=== PATIENT | female | born 1980 | race Caucasian/White ===

== ENCOUNTER 2017-09-24 05:14 | Emergency (ER) | payer OTHER ==
[2017-09-24 06:10] VITALS: BP 134/76
--- NOTE | 2017-09-24 06:21 | ED ---
Demetris Yao Natalie, scribed for Chalo Dee MD on 09/24/17 at 0543 . Laceration/Wound HPI - HPI Summary HPI Summary: The patient is a 37 y/o F presenting to the ED c/o laceration on upper right eyebrow from her indoor cat at 05:00 this morning. The laceration is red with active controlled bleeding. There is another scratch on her chest as well. Pt denies vision changes. She had a similar incident of a cat scratch in the same area. She is UTD on tetanus shot. - History of Current Complaint Stated Complaint: ANIMAL SCRATCH Time Seen by Provider: 09/24/17 05:23 Hx Obtained From: Patient Onset/Duration: Sudden Onset, Lasting Minutes, Still Present Aggravating: Nothing Alleviating: Nothing Timing: Constant Onset Severity: Mild Current Severity: Mild Pain Intensity: 0 Pain Scale Used: 0-10 Numeric Associated Signs & Symptoms: Redness - Allergy/Home Medications Allergies/Adverse Reactions: Allergies Allergy/AdvReac Type Severity Reaction Status Date / Time aspirin Allergy GI Upset Verified 09/24/17 05:22 dextromethorphan Allergy Hives Verified 09/24/17 05:22 [From Dimetapp Cold-Congestion] diphenhydramine Allergy Hives Verified 09/24/17 05:22 [From Dimetapp Cold-Congestion] guaifenesin Allergy Hives Verified 09/24/17 05:22 [From Dimetapp Cold-Congestion] ketorolac [From Toradol] Allergy Vomiting Verified 09/24/17 05:22 latex Allergy Rash Verified 09/24/17 05:22 morphine Allergy hypotension Verified 09/24/17 05:22 and bradycardia paroxetine [From Paxil] Allergy Altered Verified 09/24/17 05:22 Mental Status phenylephrine Allergy Hives Verified 09/24/17 05:22 [From Dimetapp Cold-Congestion] pseudoephedrine Allergy Hives Verified 09/24/17 05:22 [From Dimetapp Cold-Congestion] sertraline [From Zoloft] Allergy Altered Verified 09/24/17 05:22 Mental Status tramadol Allergy Vomiting Verified 09/24/17 05:22 cinnamon Allergy Rash Uncoded 09/24/17 05:22 PMH/Surg Hx/FS Hx/Imm Hx Endocrine/Hematology History: Denies: Hx Diabetes Cardiovascular History: Denies: Hx Hypertension Infectious Disease History: No Infectious Disease History: Denies: Traveled Outside the [place] in Last 30 Days - Family History Known Family History: Negative: Hypertension Review of Systems Negative: Fever Eyes: Negative - vision changes Positive: Other - laceration with redness and bleeding in upper right eyelid All Other Systems Reviewed And Are Negative: Yes Physical Exam - Summary Physical Exam Summary: Appearance: Well appearing, no pain distress Skin: warm, dry, reflects adequate perfusion Head/face: normal Eyes: EOMI, NIKOLAS, 18mm transverse laceration in right upper eyelid ENT: normal Neck: supple, non-tender Respiratory: CTA, breath sounds present Cardiovascular: RRR, pulses symmetrical Abdomen: non-tender, soft Bowel Sounds: present Musculoskeletal: normal, strength/ROM intact Neuro: normal, sensory motor intact, A&Ox3 Triage Information Reviewed: Yes Vital Signs On Initial Exam: Initial Vitals Temp Pulse Resp BP Pulse Ox 97.5 F 75 18 111/80 98 09/24/17 05:17 09/24/17 05:17 09/24/17 05:17 09/24/17 05:17 09/24/17 05:17 Vital Signs Reviewed: Yes Procedures - Laceration/Wound Repair 1 Location: face - upper right eyelid Anesthesia: .5%, Lido Irrigated w/ Saline (ccs): 30 Suture Type: Prolene - 6-0 Number of Sutures: 4 Diagnostics - Vital Signs Vital Signs Temp Pulse Resp BP Pulse Ox 09/24/17 05:17 97.5 F 75 18 111/80 98 - Laboratory Lab Statement: Any lab studies that have been ordered have been reviewed, and results considered in the medical decision making process. Laceration Repair Course/Dx - Course Course Of Treatment: Cat scratch injury to the upper eyelid irrigated, sutured closed. Ordered short course of Augmentin. Up-to-date on tetanus. Good cosmetic result with closure. - Clinical Impression Provider Diagnoses: Cat scratch, Eyelid laceration, right Discharge - Sign-Out/Discharge Documenting (check all that apply): Discharge/Admit/Transfer - Discharge Plan Condition: Good Disposition: HOME Prescriptions: Amoxicillin/Clavulanate TAB* [Augmentin TAB 875*] 875 mg PO BID #8 tab Patient Education Materials: Laceration (ED) Referrals: Bertin Castaneda MD [Primary Care Provider] - Additional Instructions: Dressed with antibiotic ointment 2-3 times daily. Return with concern for infection, worse, new symptoms or other concerns. Sutures to be removed in 5-7 days' time. This can be done by your doctor, urgent care or return to the ER. - Billing Disposition and Condition Condition: GOOD Disposition: HOME The documentation as recorded by the Demetris brenner Natalie accurately reflects the service I personally performed and the decisions made by me, Chalo Dee MD.
== END 2017-09-24 06:10 | disposition home or self-care (01) ==
LOC: ED 05:14
DX: S01.111A Laceration without foreign body of right eyelid and periocular area, initial encounter (principal); W55.03XA Scratched by cat, initial encounter; Y92.9 Unspecified place or not applicable; Z88.6 Allergy status to analgesic agent; Z88.5 Allergy status to narcotic agent; Z88.8 Allergy status to other drugs, medicaments and biological substances
CPT/HCPCS: 12011; 99282

== ENCOUNTER 2018-04-09 05:03 | Emergency (ER) | payer OTHER ==
--- OUTSIDE RECORDS SUMMARY | 2018-04-09 05:17 | XMS REPORT | Continuity of Care Document ---
:1980 External Reference #:[id number] Author Name Senait Rawls Care Team Providers Name Role Phone Donavan To MD Primary Care Physician Unavailable Payers Type Date Identification Numbers Payment Provider Subscriber Policy Number: [id number] Mauri Stubbs PayID: [id number] [address] [place] [address] Advance Directives Description No Information Available Problems Date Description Provider Status Onset: 12/05/2017 Allergic contact dermatitis due to Donavan To M.D. Active other agents Onset: 11/21/2017 Temper problem Donavan To M.D. Active Onset: 07/15/2017 Tobacco user Donavan To M.D. Active Family History Date Family Member(s) Problem(s) Comments Father Heart Disease Mother Diabetes Type II Social History Type Date Description Comments Sex Unknown ETOH Use Denies alcohol use Tobacco Use Start: Unknown Light tobacco smoker (10 or fewer cigarettes/day) Recreational Drug Use Denies Drug Use Smoking Status Reviewed: 04/02/18 Light tobacco smoker (10 or fewer cigarettes/day) Allergies, Adverse Reactions, Alerts Date Description Reaction Status Severity Comments 07/15/2017 Ketorolac Tromethamine vomiting Active 07/15/2017 Ultram vomiting Active 07/15/2017 Morphine low blood pressure Active 07/15/2017 Zoloft vomiting Active 07/15/2017 Paxil homicidal thoughts Active 07/15/2017 Dimetapp Children's Cold And blisters in mouth Active Allergy 04/02/2018 Latex Active Medications Medication Date Status Form Strength Qnty SIG Indications Ordering Provider Haloperidol 03/19 Active Concentrate 2mg/ml 15ml 05/08 F91.8 milliliters [place], daily Oxybutynin 00 Active Tablets ER 5mg 1 by mouth Unknown Chloride ER /0000 24HR every day Betamethasone 12/05 Hx Ointment 0.05% 90gm apply thin L23.89 [place] Dipropionate layer twice Pachika - daily over , MRogeDRoge 01/16 lesions Haloperidol 11/21 Hx Tablets 0.5mg 30tab once daily F91.8 s Zuleika Lowe M.D. 03/19 Oseltamivir 10/16 Hx Capsules 75mg 10cap 1 cap twice J11.89 Phosphate s a day Zuleika Lowe M.D. 11/21 No Active 07/15 Hx Unknown Medications /2017 - 10/16 Docusate Hx Tablets 100mg take 1 tab Unknown Sodium /0000 at bedtime - as needed 01/16 constipation Td(Adult),Unsp Active Injection Unknown ecified /0000 Immunizations Description No Information Available Vital Signs Date Vital Result Comment 04/02/2018 1:53pm Height 65.50 inches 5'5.50" Weight 206.38 lb Heart Rate 84 /min BP Systolic 106 mmHg BP Diastolic 70 mmHg Body Temperature 97.1 F O2 % BldC Oximetry 96 % BMI (Body Mass Index) 33.8 kg/m2 03/19/2018 9:41am Height 65.50 inches 5'5.50" Weight 208.00 lb Heart Rate 83 /min BP Systolic 120 mmHg BP Diastolic 70 mmHg O2 % BldC Oximetry 98 % BMI (Body Mass Index) 34.1 kg/m2 01/16/2018 9:53am Height 65.50 inches 5'5.50" Weight 206.00 lb Heart Rate 80 /min BP Systolic Sitting 120 mmHg BP Diastolic Sitting 62 mmHg Body Temperature 97.4 F O2 % BldC Oximetry 95 % BMI (Body Mass Index) 33.8 kg/m2 12/05/2017 8:15am Height 65.50 inches 5'5.50" Weight 198.00 lb Heart Rate 80 /min BP Systolic 122 mmHg BP Diastolic 78 mmHg O2 % BldC Oximetry 98 % BMI (Body Mass Index) 32.4 kg/m2 11/21/2017 8:24am Height 65.50 inches 5'5.50" Weight 196.00 lb Heart Rate 77 /min BP Systolic 110 mmHg BP Diastolic 70 mmHg O2 % BldC Oximetry 98 % BMI (Body Mass Index) 32.1 kg/m2 09/30/2017 10:25am Weight 185.00 lb Heart Rate 72 /min BP Systolic Sitting 120 mmHg BP Diastolic Sitting 78 mmHg O2 % BldC Oximetry 97 % 09/26/2017 10:52am Weight 186.00 lb Heart Rate 78 /min BP Systolic Sitting 116 mmHg BP Diastolic Sitting 68 mmHg O2 % BldC Oximetry 98 % 09/05/2017 3:36pm Height 65 inches 5'5" Weight 182.25 lb Heart Rate 70 /min BP Systolic Sitting 118 mmHg BP Diastolic Sitting 72 mmHg O2 % BldC Oximetry 98 % BMI (Body Mass Index) 30.3 kg/m2 07/15/2017 3:32pm Height 65 inches 5'5" Weight 164.00 lb Heart Rate 90 /min BP Systolic 132 mmHg BP Diastolic 71 mmHg Body Temperature 97.9 F O2 % BldC Oximetry 98 % BMI (Body Mass Index) 27.3 kg/m2 Results Test Date Facility Test Result H/L Range Note Lipid Profile 12/27/2017 [facility] Triglycerides 127 mg/dL 1 (Trig/Chol/HDL) [address] [place] [address] [phone] Cholesterol 214 mg/dL 2 HDL Cholesterol 61.7 mg/dL 3 LDL Cholesterol 127 mg/dL 4 Basic Metabolic Panel 12/27/2017 [facility] Sodium 139 mmol/L N 135-145 [address] [place] [address] [phone] Potassium 4.5 mmol/L N 3.5-5.0 Chloride 105 mmol/L N 101-111 Co2 Carbon Dioxide 28 mmol/L N 22-32 Anion Gap 6 mmol/L N 2-11 Glucose 92 mg/dL N 70-100 Blood Urea Nitrogen 7 mg/dL N 6-24 Creatinine 0.67 mg/dL N 0.51-0.95 BUN/Creatinine Ratio 10.4 N 8-20 Calcium 9.4 mg/dL N 8.6-10.3 Egfr Non- 98.0 >60 Egfr 118.6 >60 5 Comp Metabolic Panel 11/24/2017 [facility] Sodium 139 mmol/L N 135-145 [address] [place] [address] [phone] Potassium 4.0 mmol/L N 3.5-5.0 Chloride 104 mmol/L N 101-111 Co2 Carbon Dioxide 26 mmol/L N 22-32 Anion Gap 9 mmol/L N 2-11 Glucose 90 mg/dL N 70-100 Blood Urea Nitrogen 6 mg/dL N 6-24 Creatinine 0.64 mg/dL N 0.51-0.95 BUN/Creatinine Ratio 9.4 N 8-20 Calcium 9.0 mg/dL N 8.6-10.3 Total Protein 6.3 g/dL Low 6.4-8.9 Albumin 4.1 g/dL N 3.2-5.2 Globulin 2.2 g/dL N 2-4 Albumin/Globulin Ratio 1.9 N 1-3 Total Bilirubin 0.40 mg/dL N 0.2-1.0 Alkaline Phosphatase 56 U/L N 34-104 Alt 26 U/L N 7-52 Ast 21 U/L N 13-39 Egfr Non- 103.3 >60 Egfr 125.0 >60 6 Laboratory test 10/17/2017 [facility] Lyme Disease Negative Negative [address] [place] [address] [phone] 1 Desirable: <150 Borderline High: 150-199 High: 200-499 Very High: >500 2 Desirable: <200 Borderline High: 200-239 High: >239 3 Low: <40 Desirable: 40-60 High: >60 4 Desirable: <100 Near Optimal: 100-129 Borderline High: 130-159 High: 160-189 Very High: >189 5 Because ethnic data is not always readily available, this report includes an eGFR for both -Americans and non- Americans. The National Kidney Disease Education Program (NKDEP) does not endorse the use of the MDRD equation for patients that are not between the ages of 18 and 70, are , have extremes of body size, muscle mass, or nutritional status, or are non- or non-. According to the National Kidney Foundation, irrespective of diagnosis, the stage of the disease is based on the level of kidney function: Stage Description GFR(mL/min/1.73 m(2)) 1 Kidney damage with normal or decreased GFR 90 2 Kidney damage with mild decrease in GFR 60-89 3 Moderate decrease in GFR 30-59 4 Severe decrease in GFR 15-29 5 Kidney failure <15 (or dialysis) 6 Because ethnic data is not always readily available, this report includes an eGFR for both -Americans and non- Americans. The National Kidney Disease Education Program (NKDEP) does not endorse the use of the MDRD equation for patients that are not between the ages of 18 and 70, are , have extremes of body size, muscle mass, or nutritional status, or are non- or non-. According to the National Kidney Foundation, irrespective of diagnosis, the stage of the disease is based on the level of kidney function: Stage Description GFR(mL/min/1.73 m(2)) 1 Kidney damage with normal or decreased GFR 90 2 Kidney damage with mild decrease in GFR 60-89 3 Moderate decrease in GFR 30-59 4 Severe decrease in GFR 15-29 5 Kidney failure <15 (or dialysis) 7 No evidence of antibodies to B. burgdorferi detected. False negative results may occur in recently infected patients (<=2 weeks) due to low or undetectable antibody levels to B. burgdorferi. If recent exposure is suspected, a second sample should be collected and tested in 2-4 weeks. Test Performed by: [facility] [address] [place] [address] Procedures Date Code Description Status 03/31/2018 072104942 Diabetic Foot Exam Completed 11/21/2017 36939 EKG Tracing & Interpretation Completed 11/07/2017 [id number] Mammogram Completed Encounters Type Date Location Provider Dx Diagnosis Office Visit 01/23/2018 [facility] Dermatology Gini Marsh, L30.9 Dermatitis, 9:20a unspecified Office Visit 01/16/2018 [facility] Max Go F91.8 Other conduct 10:00a Medicine - [place] Cheikh To M.D. 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 Office Visit 10/16/2017 2:40p [facility] Internal Donavan J11.89 Influenza due to Kev - Philipp To unidentified [address] influenza virus w oth manifest S80.269A Insect bite (nonvenomous), unspecified knee, init encntr Office Visit 09/30/2017 10:20a [facility] Internal Seth Crum Z48.02 Encounter for Medicine - [place] Mora removal of [place] sutures Office Visit 09/26/2017 11:00a [facility] Internal Mariela S01.111D Laceration w/o Medicine - [place] Arreola fb of right [place] eyelid and periocular area, subs Office Visit 09/05/2017 3:40p [facility] Internal Damion Gonzalez, N64.4 Mastodynia Medicine - [employer] [address] N39.46 Mixed incontinence Office Visit 07/15/2017 3:20p [facility] Internal Donavan To, Z00.01 Encounter for Kev - Philipp general adult [address] medical exam w abnormal findings F17.210 Nicotine dependence, cigarettes, uncomplicated Plan of Treatment Future Appointment(s):05/21/2018 10:00 am - Charles Perez M.D.,FACP at [facility] Internal Medicine - [address]04/23/2018 9:20 am - Giin Marsh MD at [facility] Vvxteggupgd05/29/2018 - Donavan To M.D.M85.80 Other specified disorders of bone density and structure, unsNew Xrays:Dexa Bone Study, Ordered: ollow up:after dexascan is ibzdyuweyZ14.2 Polycystic ovarian syndromeNew Xrays:US Pelvic, Ordered: 04/02/18
--- OUTSIDE RECORDS SUMMARY | 2018-04-09 05:17 | XMS REPORT | Continuity of Care Document ---
:1980 External Reference #:[id number] Author Name Mayra Wilkinson Care Team Providers Name Role Phone Donavan To MD Primary Care Physician Unavailable Payers Type Date Identification Numbers Payment Provider Subscriber Policy Number: [id number] Mauri Stubbs PayID: [id number] [address] [place] [address] Advance Directives Description No Information Available Problems [...] Use Denies Drug Use Smoking Status Reviewed: 03/19/18 Light tobacco smoker (10 or fewer cigarettes/day) Allergies, Adverse Reactions, Alerts Date Description Reaction Status Severity Comments 07/15/2017 Ketorolac Tromethamine vomiting Active 07/15/2017 Ultram vomiting Active 07/15/2017 Morphine low blood pressure Active 07/15/2017 Zoloft vomiting Active 07/15/2017 Paxil homicidal thoughts Active 07/15/2017 Dimetapp Children's Cold And blisters in mouth Active Allergy Medications Medication Date Status Form Strength Qnty SIG Indications Ordering Provider Haloperidol 03/19 Active Concentrate 2mg/ml 15ml 1/4 ml daily F91.8 Donavan Mejía /Yannick To M.D. Oxybutynin 00/ Active Tablets ER 5mg 1 by mouth Unknown Chloride ER /0000 24HR every day Betamethasone 12/05 Hx Ointment 0.05% 90gm apply thin L23.89 [place] Dipropionate layer twice P[place]ik[place] - daily over , MRogeDRoge 01/16 elbow lesions Haloperidol 11/21 Hx Tablets 0.5mg 30tab once daily F91.8 s Zuleika Lowe M.D. 03/19 Oseltamivir 10/16 Hx Capsules 75mg 10cap 1 cap twice J11.89 Phosphate s a day Zuleika Lowe M.D. 11/21 No Active 07/15 Hx Unknown Medications /2017 - 10/16 Docusate Hx Tablets 100mg take 1 tab Unknown Sodium /0000 at bedtime - as needed 01/16 for constipation Td(Adult),Unsp Active Injection Unknown ecified /0000 Immunizations Description No Information Available Vital Signs Date Vital Result Comment 03/19/2018 9:41am Height 65.50 inches 5'5.50" Weight [...] Result H/L Range Note Lipid Profile 12/27/2017 [facility] Triglycerides 127 mg/dL 1 (Trig/Chol/HDL) [place] [address] [phone] Cholesterol 214 mg/dL 2 HDL Cholesterol 61.7 mg/dL 3 LDL Cholesterol 127 mg/dL 4 Basic Metabolic Panel 12/27/2017 [facility] Sodium 139 mmol/L N 135-145 [place] [address] [phone] Potassium 4.5 mmol/L N 3.5-5.0 Chloride 105 mmol/L N 101-111 Co2 Carbon Dioxide 28 mmol/L N 22-32 Anion Gap 6 mmol/L N 2-11 Glucose 92 mg/dL N 70-100 Blood Urea Nitrogen 7 mg/dL N 6-24 Creatinine 0.67 mg/dL N 0.51-0.95 BUN/Creatinine Ratio 10.4 N 8-20 Calcium 9.4 mg/dL N 8.6-10.3 Egfr Non- 98.0 >60 Egfr 118.6 >60 5 Comp Metabolic Panel 11/24/2017 [facility] Sodium 139 mmol/L N 135-145 [place] [address] [phone] Potassium 4.0 mmol/L N 3.5-5.0 Chloride 104 [...] Egfr 125.0 >60 6 Laboratory test 10/17/2017 [facility] Lyme Disease Negative Negative [address] [place] [address] [phone] 1 Desirable: <150 Borderline High: 150-199 High: [...] tested in 2-4 weeks. Test Performed by: [facility] [address] [place] [address] Procedures Date Code Description Status 11/21/2017 15137 EKG Tracing & Interpretation Completed 11/07/2017 [id number] Mammogram Completed Encounters Type Date Location Provider Dx Diagnosis Office Visit 01/23/2018 [facility] Dermatology Gini Marsh, L30.9 Dermatitis, 9:20a unspecified Office Visit 01/16/2018 [facility] Max Go F91.8 Other conduct 10:00a Medicine - [place] Cheikh To M.D. 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 unidentified [address] influenza virus w oth manifest S80.269A Insect bite (nonvenomous), unspecified knee, init encntr Office Visit 09/30/2017 10:20a [facility] Internal Seth Crum Z48.02 Encounter for Medicine - [place] Mora removal of [place] sutures Office Visit 09/26/2017 11:00a [facility] Internal Mariela S01.111D Laceration w/o Medicine - [place] Arreola fb of right [place] eyelid and periocular area, subs Office Visit 09/05/2017 3:40p [facility] Internal Damion Gonzalez, N64.4 Mastodynia Medicine - [employer] ORDER [address] N39.46 Mixed incontinence Office Visit 07/15/2017 3:20p [facility] Internal Donavan To, Z00.01 Encounter for Kev - Philipp general adult [address] medical exam w abnormal findings F17.210 Nicotine dependence, cigarettes, uncomplicated Plan of Treatment Future Appointment(s):05/21/2018 10:00 am - Charles Perez M.D.,FACP at [facility] Internal Medicine - [address]04/23/2018 9:20 am - Gini Marsh MD at [facility] Xsuoeogsqwb81/15/2018 - Donavan To M.D.F91.8 Other conduct disordersNew Medication:Haloperidol Lactate 2 mg/ml - 1/4 ml dailyFollow up:2 months + EKG
--- NOTE | 2018-04-09 05:53 | ED ---
Head Injury - HPI Summary HPI Summary: 38-year-old female presents with head injury today. States she slipped on ice and struck her head at work. She admits to some right sided upper back pain. No midline pain in neck. No loss consciousness. No nausea vomiting. No dizziness. No change in vision. No photophobia. States having difficulties concentrating. States her headache is not relieved with Tylenol. She has history of anxiety. No other injury. She is not on blood thinners. - History Of Current Complaint Chief Complaint: EDHeadInjury Stated Complaint: FALL, HEAD INJURY Time Seen by Provider: 04/09/18 05:36 Pain Intensity: 4 - Allergies/Home Medications Allergies/Adverse Reactions: Allergies Allergy/AdvReac Type Severity Reaction Status Date / Time aspirin Allergy GI Upset Verified 04/09/18 05:08 dextromethorphan Allergy Hives Verified 04/09/18 05:08 [From Dimetapp Cold-Congestion] diphenhydramine Allergy Hives Verified 04/09/18 05:08 [From Dimetapp Cold-Congestion] guaifenesin Allergy Hives Verified 04/09/18 05:08 [From Dimetapp Cold-Congestion] ketorolac [From Toradol] Allergy Vomiting Verified 04/09/18 05:08 latex Allergy Rash Verified 04/09/18 05:08 morphine Allergy hypotension Verified 04/09/18 05:08 and bradycardia paroxetine [From Paxil] Allergy Altered Verified 04/09/18 05:08 Mental Status phenylephrine Allergy Hives Verified 04/09/18 05:08 [From Dimetapp Cold-Congestion] pseudoephedrine Allergy Hives Verified 04/09/18 05:08 [From Dimetapp Cold-Congestion] sertraline [From Zoloft] Allergy Altered Verified 04/09/18 05:08 Mental Status tramadol Allergy Vomiting Verified 04/09/18 05:08 cinnamon Allergy Rash Uncoded 04/09/18 05:08 Home Medications: Home Medications Haloperidol TAB* [Haldol TAB*] 0.5 mg PO DAILY 04/09/18 [History Confirmed 04/09] Oxybutynin Chloride [Ditropan Xl] 10 mg PO DAILY 04/09/18 [History Confirmed 10/20] PMH/Surg Hx/FS Hx/Imm Hx Endocrine/Hematology History: Denies: Hx Diabetes Cardiovascular History: Denies: Hx Hypertension, Hx Pacemaker/ICD Sensory History: Denies: Hx Hearing Aid Psychiatric History: Denies: Hx Panic Disorder - Surgical History Surgery Procedure, Year, and Place: TOTAL HYSTERECTOMY;. L5/S1 MICRO DISCECTOMY / LAMINECTOMY;. TUBAL LIGATION;. EXPLORATORY SURGERY TO ABDOMEN;. ORAL Infectious Disease History: No Infectious Disease History: Denies: Traveled Outside the [place] in Last 30 Days - Family History Known Family History: Negative: Hypertension - Social History Alcohol Use: Occasionally Substance Use Type: Reports: None Smoking Status (MU): Current Every Day Smoker Review of Systems Negative: Fever Negative: Chest Pain Negative: Shortness Of Breath Negative: Vomiting, Nausea Positive: Headache All Other Systems Reviewed And Are Negative: Yes Physical Exam Triage Information Reviewed: Yes Vital Signs On Initial Exam: Initial Vitals Temp Pulse Resp BP Pulse Ox 97.7 F 80 18 134/80 99 04/09/18 05:05 04/09/18 05:05 04/09/18 05:05 04/09/18 05:05 04/09/18 05:05 Vital Signs Reviewed: Yes Appearance: Positive: Well-Appearing Skin: Positive: Warm, Dry Head/Face: Positive: Normal Head/Face Inspection, Other - no step off, racoon eyes, romo sign Eyes: Positive: Normal, EOMI, NIKOLAS, Conjunctiva Clear ENT: Positive: Normal ENT inspection, Pharynx normal, TMs normal Respiratory/Lung Sounds: Positive: Clear to Auscultation, Breath Sounds Present Cardiovascular: Positive: Normal, RRR Abdomen Description: Positive: Nontender, Soft Bowel Sounds: Positive: Present Musculoskeletal: Positive: Normal Neurological: Positive: Sensory/Motor Intact, Alert, Oriented to Person Place, Time, CN Intact II-III, Normal Gait, Finger to Nose Psychiatric: Positive: Normal - [place] Coma Scale Best Eye Response: 4 - Spontaneous Best Motor Response: 6 - Obeys Commands Best Verbal Response: 5 - Oriented Coma Scale Total: 15 Diagnostics - Vital Signs Vital Signs Temp Pulse Resp BP Pulse Ox 04/09/18 05:05 97.7 F 80 18 134/80 99 - Laboratory Lab Statement: Any lab studies that have been ordered have been reviewed, and results considered in the medical decision making process. Head Injury Course/Dx Course Of Treatment: 38-year-old female presents with head injury today. States she slipped on ice and struck her head at work. She admits to some right sided upper back pain. No midline pain in neck. No loss consciousness. No nausea vomiting. No dizziness. No change in vision. No photophobia. States having difficulties concentrating. States her headache is not relieved with Tylenol. She has history of anxiety. No other injury. She is not on blood thinners. On exam normal neuro exam. According [facility] CT rules does not need any head imaging. Gave her concussion precautions. Told to follow-up with primary. Patient understands agrees with plan. - Diagnoses Differential Diagnosis/HQI/PQRI: Concussion Without LOC, Contusion, Intracranial Bleed Provider Diagnoses: Head injury Discharge - Sign-Out/Discharge Documenting (check all that apply): Patient Departure - Discharge Plan Condition: Good Disposition: HOME Patient Education Materials: Head Injury (ED) Forms: *Work Release Referrals: Donavan To MD [Primary Care Provider] - Additional Instructions: Place ice on area as needed Take Tylenol or ibuprofen for headache every 6 hours Modify activities as tolerated Follow up with primary within 5 days Return to ED if develop vomiting, severe headache, or any new or worsening symptoms - Billing Disposition and Condition Condition: GOOD Disposition: Home
[2018-04-09 06:04] VITALS: BP 134/82
== END 2018-04-09 06:04 | disposition home or self-care (01) ==
LOC: ED 05:03
DX: S09.90XA Unspecified injury of head, initial encounter (principal); F17.200 Nicotine dependence, unspecified, uncomplicated; W00.0XXA Fall on same level due to ice and snow, initial encounter; Y92.9 Unspecified place or not applicable
CPT/HCPCS: 99282

== ENCOUNTER 2018-04-10 17:07 | Emergency (ER) | payer OTHER ==
[2018-04-10] MEDS ORDERED: NS 0.9% 1000 ML* 1,000 ML IV ONE (17:48)
--- NOTE | 2018-04-10 18:00 | ED ---
Syncope/Near Syncope - HPI Summary HPI Summary: This patient is a 38 year old F presenting to [facility] with a chief complaint of LOC since 04:00 this morning. She was at work walking outside for a smoke break when she suffered the LOC. Patient reports that she was on the ground flopping like a fish and holding her head. Her coworkers did not let her get up immediately. Patient eventually got back up, took her smoke break, and went back to work. However, she then developed intermittent blurry vision, uncontrollable crying, and a headache. She took 2 Tylenol and continued working , but her symptoms did not improve. Patient then tried to text her boss that she needed to go to the hospital but could not recognize the names in her phone. 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 She was diagnosed with a concussion and sent home, instructed to take 2 days off of work. However, the patient followed up at Urgent Care complaining of worsening left-sided rib pain, upper left shoulder pain, and neck pain. The patient rates the pain 6/10 in severity when she is moving. Patient reports taking Haloperidol for anxiety and depression. Patient also takes Oxybutynin because she had a hysterectomy at 28 years old. She cadence any kidney issues. - History Of Current Complaint Chief Complaint: EDHeadInjury Time Seen by Provider: 04/10/18 17:20 Hx Obtained From: Patient Onset/Duration: Sudden Onset, Lasting Minutes Context: Witnessed Activity At Onset: Other - Walking Associated Signs And Symptoms: Head Trauma (Remote), Headache, Other - Intermittent blurred vision, uncontrollable crying, and confusion. These worsened today: left-sided rib pain, upper left shoulder pain, and neck pain. - Allergies/Home Medications Allergies/Adverse Reactions: Allergies Allergy/AdvReac Type Severity Reaction Status Date / Time aspirin Allergy GI Upset Verified 04/09/18 05:08 dextromethorphan Allergy Hives Verified 04/09/18 05:08 [From Dimetapp Cold-Congestion] diphenhydramine Allergy Hives Verified 04/09/18 05:08 [From Dimetapp Cold-Congestion] guaifenesin Allergy Hives Verified 04/09/18 05:08 [From Dimetapp Cold-Congestion] ketorolac [From Toradol] Allergy Vomiting Verified 04/09/18 05:08 latex Allergy Rash Verified 04/09/18 05:08 morphine Allergy hypotension Verified 04/09/18 05:08 and bradycardia paroxetine [From Paxil] Allergy Altered Verified 04/09/18 05:08 Mental Status phenylephrine Allergy Hives Verified 04/09/18 05:08 [From Dimetapp Cold-Congestion] pseudoephedrine Allergy Hives Verified 04/09/18 05:08 [From Dimetapp Cold-Congestion] sertraline [From Zoloft] Allergy Altered Verified 04/09/18 05:08 Mental Status tramadol Allergy Vomiting Verified 04/09/18 05:08 cinnamon Allergy Rash Uncoded 04/09/18 05:08 PMH/Surg Hx/FS Hx/Imm Hx Endocrine/Hematology History: Denies: Hx Diabetes Cardiovascular History: Denies: Hx Hypertension, Hx Pacemaker/ICD Sensory History: Denies: Hx Hearing Aid Psychiatric History: Denies: Hx Panic Disorder - Surgical History Surgery Procedure, Year, and Place: TOTAL HYSTERECTOMY;. L5/S1 MICRO DISCECTOMY / LAMINECTOMY;. TUBAL LIGATION;. EXPLORATORY SURGERY TO ABDOMEN;. ORAL Infectious Disease History: No Infectious Disease History: Denies: Traveled Outside the [place] in Last 30 Days - Family History Known Family History: Negative: Hypertension - Social History Alcohol Use: Occasionally Substance Use Type: Reports: None Smoking Status (MU): Current Every Day Smoker Review of Systems Positive: Blurred Vision - Intermittent Positive: Other - neck pain Positive: Other - left-sided rib pain and upper left shoulder pain Neurological: Other - Uncontrollable crying and confusion (tried to text her boss that she needed to go to the hospital but could not recognize the names in her phone) Positive: Headache, Syncope All Other Systems Reviewed And Are Negative: Yes Physical Exam - Summary Physical Exam Summary: VITAL SIGNS: Reviewed. GENERAL: Patient is a well-developed and nourished FEMALE who is lying comfortable in the stretcher. Patient is not in any acute respiratory distress. HEAD AND FACE: No signs of trauma. No ecchymosis, hematomas or skull depressions. No sinus tenderness. EYES: PERRLA, EOMI x 2, No injected conjunctiva, no nystagmus. EARS: Hearing grossly intact. Ear canals and tympanic membranes are within normal limits. MOUTH: Oropharynx within normal limits. NECK: Supple, trachea is midline, no adenopathy, no JVD, no carotid bruit, has c -spine tenderness, neck with full ROM. CHEST: Symmetric, left rib cage tenderness. LUNGS: Clear to auscultation bilaterally. No wheezing or crackles. CVS: Regular rate and rhythm, S1 and S2 present, no murmurs or gallops appreciated. ABDOMEN: Soft, non-tender. No signs of distention. No rebound no guarding, and no masses palpated. Bowel sounds are normal. EXTREMITIES: FROM in all major joints, no edema, no cyanosis or clubbing. NEURO: Alert and oriented x 3. No acute neurological deficits. Speech is normal and follows commands. SKIN: Dry and warm GCS: 15 Triage Information Reviewed: Yes Vital Signs On Initial Exam: Initial Vitals Temp Pulse Resp BP Pulse Ox 97.8 F 68 18 163/71 98 04/10/18 17:10 04/10/18 17:10 04/10/18 17:10 04/10/18 17:10 04/10/18 17:10 Vital Signs Reviewed: Yes Diagnostics - Vital Signs Vital Signs Temp Pulse Resp BP Pulse Ox 04/10/18 17:10 97.8 F 68 18 163/71 98 - Laboratory Result Diagrams: 04/10/18 18:46 04/10/18 18:46 Lab Statement: Any lab studies that have been ordered have been reviewed, and results considered in the medical decision making process. - CT Chest CT CT Interpretation Completed By: Radiologist Summary of CT Findings: 20:24. 1. Nondisplaced right fourth rib fracture without complicating pneumothorax or. hemothorax. 2. No other acute post traumatic findings. ED Physician has reviewed this imaging report. Cervical Spine CT CT Interpretation Completed By: Radiologist Summary of CT Findings: 20:07. No acute fracture, subluxation, or aggressive osseous lesion. ED Physician has reviewed this imaging report. Brain CT CT Interpretation Completed By: Radiologist Summary of CT Findings: 20:05. No acute intracranial abnormality. ED Physician has reviewed this imaging report. - EKG 17:55 Cardiac Rate: Bradycardia - 57 BPM EKG Rhythm: Sinus Rhythm ST Segment: Normal Course/Dx Assessment/Plan: This patient is a 38 year old F presenting to [facility] with a chief complaint of LOC since 04:00 this morning. She was at work walking outside for a smoke break when she suffered the LOC. Patient reports that she was on the ground flopping like a fish and holding her head. Her coworkers did not let her get up immediately. Patient eventually got back up, took her smoke break, and went back to work. However, she then developed intermittent blurry vision, uncontrollable crying, and a headache. She took 2 Tylenol and continued working, but her symptoms did not improve. Patient then tried to text her boss that she needed to go to the hospital but could not recognize the names in her phone. 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 She was diagnosed with a concussion and sent home, instructed to take 2 days off of work. However, the patient followed up at Urgent Care complaining of worsening left-sided rib pain, upper left shoulder pain, and neck pain. The patient rates the pain 6/10 in severity when she is moving. Patient reports taking Haloperidol for anxiety and depression. Patient also takes Oxybutynin because she had a hysterectomy at 28 years old. She denies any kidney issues. C-spine CT impression: No acute fracture, subluxation or aggressive osseous lesion. Head CT impresion: no acute intracranial abnormality. Chest CT impression: Nondisplaced right fourth rib fracture without complicating pneumothorax or hemothorax. No acute posttraumatic findings. In the ED course the patient was given Farina recommended for the pain. At this point the patient will be discharged home with follow-up with PCP. The patient will be given 2 days off from work to return to work on Friday. She will be given a position for Vicodin for pain. - Diagnoses Provider Diagnoses: Rib fracture, Accidental fall Discharge - Sign-Out/Discharge Documenting (check all that apply): Patient Departure - D/C - Discharge Plan Condition: Stable Disposition: HOME Prescriptions: HYDROcodone/ACETAMIN 5-325 MG* [Farina 5-325 TAB*] 1 tab PO Q4H PRN 4 Days #10 tab MDD 4 PRN Reason: Pain Patient Education Materials: Rib Fracture (ED), Acute Neck Pain (ED) Forms: *Work Release Referrals: Donavan To MD [Primary Care Provider] - Additional Instructions: F/U with PCP in 3 days Take medications as indicated - Billing Disposition and Condition Condition: STABLE Disposition: Home - Attestation Statements Document Initiated by Scribe: Yes Documenting Scribe: Juwan Figueroa Provider For Whom Scribe is Documenting (Include Credential): Seth Perez MD Scribe Attestation: IJuwan, scribed for Seth Perez MD on 04/10/18 at 2105. Scribe Documentation Reviewed: Yes Provider Attestation: The documentation as recorded by the Juwan brenner accurately reflects the service I personally performed and the decisions made by me, Seth Perez MD Status of Scribe Document: Viewed
[2018-04-10 18:55] LABS: Hematocrit 43 % (35-47); Hemoglobin 14.3 g/dl (12.0-16.0); Mean Corpuscular HGB Conc 34 g/dl (31-36); Mean Corpuscular Hemoglobin 29 pg (27-31); Mean Corpuscular Volume 87 fL (80-97); Mean Platelet Volume 8.9 fL (7.4-10.4); Platelet Count 305 10^3/ul (150-450); Red Blood Count 4.92 10^6/ul (4.00-5.40); Red Cell Distribution Width 13 % (10.5-15); White Blood Count 11.7 10^3/ul (3.5-10.8)
[2018-04-10 19:12] LABS: EGFR Non-African American 94.2 (>60)
[2018-04-10] MEDS ORDERED: Iohexol 300* (CONTRAST) 10 ML SDV IV ONE (19:19)
[2018-04-10 19:31] LABS: ABS Basophils 0.2 10^3/ul (0-0.2); ABS Eosinophils 0.4 10^3/ul (0-0.6); ABS Lymphocytes 5.3 10^3/ul (1.0-4.8); ABS Monocytes 0.8 10^3/ul (0-0.8); ABS Nucleated RBC 0 10^3/ul; Eosinophil % 3.7 %; Lymphocyte % 45.4 %; Nucleated Red Blood Cells % 0
[2018-04-10 20:33] LABS: Urine Appearance Cloudy; Urine Blood Negative (Negative); Urine Color Yellow; Urine Ketones Negative (Negative); Urine Protein Negative (Negative); Urine Red Blood Cell Absent (Absent); Urine Specific Gravity 1.034 (1.010-1.030); Urine Urobilinogen Negative (Negative); Urine White Blood Cell 3+(>20/hpf) (Absent)
[2018-04-10] MEDS ORDERED: HYDROcodone/ACETAMIN 5-325 MG* 1 TAB PO ONE (20:35)
[2018-04-10 21:27] VITALS: BP 114/54
== END 2018-04-10 21:28 | disposition home or self-care (01) ==
LOC: ED 17:07
DX: S22.39XA Fracture of one rib, unspecified side, initial encounter for closed fracture (principal); R55 Syncope and collapse; R51 Headache; R41.0 Disorientation, unspecified; Z88.0 Allergy status to penicillin; H53.8 Other visual disturbances; M54.2 Cervicalgia; F17.210 Nicotine dependence, cigarettes, uncomplicated; W19.XXXA Unspecified fall, initial encounter; Y92.9 Unspecified place or not applicable
CPT/HCPCS: 36415; 70450; 71260; 72125; 80053; 81003; 81015; 83605; 85025; 85060; 87086; 93005; 96360; 96361; 99283; Q9967

== ENCOUNTER → 2018-11-20 16:48 | Emergency (ER) | payer OTHER ==
--- OUTSIDE RECORDS SUMMARY | 2018-11-20 17:02 | XMS REPORT | Continuity of Care Document ---
:1980 External Reference #:[id number] Author Name Michelle Juarez Care Team Providers Name Role Phone Abigail Caldwell M.D. Primary Care Physician Unavailable Payers Date Identification Numbers Payment Provider Subscriber Policy Number: [id number] Mauri Stubbs PayID: [id number] [address] [place] [address] Onset: 2018 Policy Number: [id number] [employer] Jonn Stubbs Group Number: [id number] [address] Group Name: [id number] [place] [address] PayID: [id number] Problems Active Problems Provider Date Allergic contact dermatitis due to other Donavan To M.D. Onset: 2017 agents Temper problem Donavan To M.D. Onset: 11/21/2017 Tobacco user Donavan To M.D. Onset: 07/15/2017 Family History Date Family Member(s) Observation Comments General Diabetes General Chronic Obstructive Pulmonary Disease (COPD) General Spinal Stenosis General Osteoporosis General Cancer Father Heart Disease Mother Diabetes Type II Siblings 2 Social History Type Date Description Comments Sex Unknown Marital Status Single Lives With Daughters has a 15 y/o son who lives with father in [place] Occupation Currently Working nursing aide ETOH Use Denies alcohol use Tobacco Use Start: Unknown Light tobacco smoker (10 or fewer cigarettes/day) Recreational Drug Use Denies Drug Use Now admits to THC occasional Smoking Status Reviewed: 11/20/18 Light tobacco smoker (10 or fewer cigarettes/day) Exercise Type/Frequency Plans on starting to exercise again Allergies, Adverse Reactions, Alerts Active Allergies Reaction Severity Comments Date Ketorolac Tromethamine vomiting 07/15/2017 Ultram vomiting 07/15/2017 Morphine low blood pressure 07/15/2017 Zoloft vomiting 07/15/2017 Paxil homicidal thoughts 07/15/2017 Dimetapp [facility] Cold And Allergy blisters in mouth 07/15/2017 Latex 04/02/2018 Medications Active Medications SIG Qnty Indications Ordering Provider Date Hydroxyzine HCL 1-2 tabs by mouth 60tabs G47.00 Abigail Caldwell MD 11/06/2018 25mg at bedtime as Tablets needed insomnia Divalproex Sodium one twice a day 60tabs F39 Abigail Caldwell MD 09/24/2018 125mg Tablets Vitamin D3 Ultra 1 cap every week 4tabs Abigail Caldwell MD 04/09/2018 Potency [id number] Tablets Oxybutynin Chloride Take One Tablet 30tabs Abigail Caldwell MD ER By Mouth Once 5mg Tablets ER 24HR Daily History Medications Gabapentin take 1-3 tablets by 90caps G47.00 Abigail Caldwell, 09/24/2018 - 300mg mouth at bedtime as 11/06/2018 Capsules needed for insomnia Trazodone HCL 1 by mouth at 60tabs R45.4 Abigail Caldwell, 08/13/2018 - 50mg bedtime for one 11/06/2018 Tablets week, then 2 po at bedtime Trintellix one by mouth daily 30tabs F33.9 Abigail Caldwell, 06/18/2018 - 10mg Tablets 08/31/2018 Haloperidol Lactate 1/4 milliliters F33.9 Abigail Caldwell, 06/18/2018 - daily 08/13/2018 2mg/ml Concentrate Trintellix 1 by mouth every 28tabs Abigail Caldwell, 05/25/2018 - 5mg Tablets day 06/18/2018 Haloperidol take one tablet 30tabs F33.9 [facility], 04/30/2018 - 0.5mg daily 06/18/2018 Tablets Haloperidol Lactate 1/4 milliliters 15ml F91.8 Abigail Caldwell, 03/19/2018 - daily 06/18/2018 2mg/ml Concentrate Betamethasone apply thin layer 90gm L23.89 Donavan 12/05/2017 - Dipropionate twice daily over [place], 01/16/2018 0.05% elbow lesions MRogeDRoge Ointment Haloperidol once daily 30tabs F91.8 Donavan 11/21/2017 - 0.5mg [place], 03/19/2018 Tablets M.D. Oseltamivir Phosphate 1 cap twice a day 10caps J11.89 Tillar 10/16/2017 - [place], 11/21/2017 75mg Capsules M.D. No Active Medications Unknown 07/15/2017 - 10/16/2017 Docusate Sodium take 1 tab at Unknown - 100mg bedtime as needed 01/16/2018 Tablets for constipation Td(Adult),Unspecified Unknown Injection Vital Signs Date Vital Result Comment 11/20/2018 3:51pm Height 65.50 inches 5'5.50" Weight 224.50 lb Heart Rate 86 /min BP Systolic Sitting 131 mmHg Lue reg cuff BP Diastolic Sitting 84 mmHg Lue reg cuff O2 % BldC Oximetry 98 % BMI (Body Mass Index) 36.8 kg/m2 11/06/2018 8:15am Height 65.50 inches 5'5.50" Weight 226.00 lb Heart Rate 76 /min BP Systolic 112 mmHg BP Diastolic 70 mmHg Body Temperature 97.6 F O2 % BldC Oximetry 95 % BMI (Body Mass Index) 37.0 kg/m2 09/24/2018 8:06am Height 65.50 inches 5'5.50" Weight 217.00 lb Heart Rate 102 /min BP Systolic 120 mmHg BP Diastolic 74 mmHg Body Temperature 97.3 F O2 % BldC Oximetry 96 % BMI (Body Mass Index) 35.6 kg/m2 09/01/2018 8:13am Height 65.50 inches 5'5.50" Weight 217.38 lb Heart Rate 70 /min BP Systolic Sitting 118 mmHg Lue large cuff BP Diastolic Sitting 56 mmHg Lue large cuff Respiratory Rate 24 /min O2 % BldC Oximetry 97 % BMI (Body Mass Index) 35.6 kg/m2 Neck Circumference in inches 15.5 08/13/2018 9:30am Height 65.50 inches 5'5.50" Weight 213.00 lb Heart Rate 68 /min BP Systolic Sitting 122 mmHg BP Diastolic Sitting 68 mmHg BMI (Body Mass Index) 34.9 kg/m2 06/18/2018 10:10am Height 65.50 inches 5'5.50" Weight 209.25 lb Heart Rate 71 /min BP Systolic Sitting 104 mmHg left arm large cuff BP Diastolic Sitting 82 mmHg left arm large cuff Respiratory Rate 20 /min O2 % BldC Oximetry 96 % at rest on room air BMI (Body Mass Index) 34.3 kg/m2 05/25/2018 10:06am Height 65.50 inches 5'5.50" Weight 211.50 lb Heart Rate 71 /min BP Systolic Sitting 129 mmHg reg adult cuff left arm BP Diastolic Sitting 80 mmHg reg adult cuff left arm Respiratory Rate 20 /min O2 % BldC Oximetry 98 % at rest on room air BMI (Body Mass Index) 34.7 kg/m2 04/30/2018 8:49am Height 65.50 inches 5'5.50" Weight 207.00 lb Heart Rate 74 /min BP Systolic Sitting 121 mmHg BP Diastolic Sitting 74 mmHg O2 % BldC Oximetry 98 % BMI (Body Mass Index) 33.9 kg/m2 04/02/2018 1:53pm Height 65.50 inches 5'5.50" Weight [...] Date Facility Test Result H/L Range Note Laboratory test 04/10/2018 [facility] Pathologist (SEE NOTE) [address] [place] [address] [phone] Urine Culture And 04/10/2018 [facility] Urine Culture SEE RESULT [address] [place] [address] [phone] Urinalysis Profile 04/10/2018 [facility] Urine Color Yellow [address] [place] [address] [phone] Urine Appearance Cloudy Urine Specific [place] 1.034 High 1.010-1.030 Urine pH 6.0 N 5-9 Urine Urobilinogen Negative Negative Urine Ketones Negative Negative Urine Protein Negative Negative Urine Leukocytes 3+ Abnormal Negative Urine Blood Negative Negative Urine Nitrite Negative Negative Urine Bilirubin Negative Negative Urine Glucose Negative Negative Urine White Blood Cell 3+(>20/hpf) Abnormal Absent Urine Red Blood Cell Absent Absent Urine Bacteria Absent Absent Urine Squamous Epithelial Cell Present Abnormal Absent CBC Auto 04/10/2018 [facility] White Blood 11.7 10^3/uL High 3.5-10.[address] [place] [address] [phone] Red Blood Count 4.92 10^6/uL N 4.00-5.40 Hemoglobin 14.3 g/dL N 12.0-16.0 Hematocrit 43 % N 35-47 Mean Corpuscular Volume 87 fL N 80-97 Mean Corpuscular Hemoglobin 29 pg N 27-31 Mean Corpuscular HGB Conc 34 g/dL N 31-36 Red Cell Distribution Width 13 % N 10.5-15 Platelet Count 305 10^3/uL N 150-450 Mean Platelet Volume 8.9 fL N 7.4-10.4 Abs Neutrophils 5.0 10^3/uL N 1.5-7.7 Abs Lymphocytes 5.3 10^3/uL High 1.0-4.8 Abs Monocytes 0.8 10^3/uL N 0-0.8 Abs Eosinophils 0.4 10^3/uL N 0-0.6 Abs Basophils 0.2 10^3/uL N 0-0.2 Abs Nucleated RBC 0 10^3/uL Granulocyte % 43.0 % Lymphocyte % 45.4 % Monocyte % 6.6 % Eosinophil % 3.7 % Basophil % 1.3 % Nucleated Red Blood Cells % 0 Comp Metabolic Panel 04/10/2018 [facility] Sodium 137 mmol/L N 135-145 [address] [place] [address] [phone] Potassium 4.0 mmol/L N 3.5-5.0 Chloride 108 mmol/L N 101-111 Co2 Carbon Dioxide 25 mmol/L N 22-32 Anion Gap 4 mmol/L N 2-11 Glucose 96 mg/dL N 70-100 Blood Urea Nitrogen 9 mg/dL N 6-24 Creatinine 0.69 mg/dL N 0.51-0.95 BUN/Creatinine Ratio 13.0 N 8-20 Calcium 8.5 mg/dL Low 8.6-10.3 Total Protein 6.1 g/dL Low 6.4-8.9 Albumin 3.8 g/dL N 3.2-5.2 Globulin 2.3 g/dL N 2-4 Albumin/Globulin Ratio 1.7 N 1-3 Total Bilirubin 0.30 mg/dL N 0.2-1.0 Alkaline Phosphatase 53 U/L N 34-104 Alt 16 U/L N 7-52 Ast 13 U/L N 13-39 Egfr Non- 94.2 >60 Egfr 114.0 >60 3 Laboratory test 04/10/2018 [facility] Lactic Acid 0.8 mmol/L N 0.5-2.0 4 finding [address] [place] [address] [phone] Laboratory test 04/04/2018 [facility] TSH (Thyroid 0.58 mcIU/mL N 0.34-5.60 finding Stim Horm) [place] [address] [phone] Vitamin D Total 25(Oh) 14.9 ng/mL Low 20-50 FSH And LH 04/04/2018 [facility] FSH (Follicle Stim 11.0 mIU/mL [address] Hormone) [place] [address] [phone] LH (Lutenizing Hormone) 18.5 mIU/mL 6 Testosterone Free 04/04/2018 [facility] Free 0.72 0.06-0.98 7 & Total Testosterone ng/[place] [address] ng/dl [phone] Testosterone 30 ng/dL 8-60 8 Lipid Profile 12/27/2017 [facility] Triglycerides 127 mg/dL 9 (Trig/Chol/HDL) [place] [address] [phone] Cholesterol 214 mg/dL 10 HDL Cholesterol 61.7 mg/dL 11 LDL Cholesterol 127 mg/dL 12 Basic Metabolic Panel 12/27/2017 [facility] Sodium 139 mmol/L N 135-145 [place] [address] [phone] Potassium 4.5 mmol/L N 3.5-5.0 Chloride 105 mmol/L N 101-111 Co2 Carbon Dioxide 28 mmol/L N 22-32 Anion Gap 6 mmol/L N 2-11 Glucose 92 mg/dL N 70-100 Blood Urea Nitrogen 7 mg/dL N 6-24 Creatinine 0.67 mg/dL N 0.51-0.95 BUN/Creatinine Ratio 10.4 N 8-20 Calcium 9.4 mg/dL N 8.6-10.3 Egfr Non- 98.0 >60 Egfr 118.6 >60 13 Comp Metabolic Panel 11/24/2017 [facility] Sodium 139 mmol/L N 135-[address] [place] [address] [phone] Potassium 4.0 mmol/L N 3.5-5.0 Chloride 104 [...] Egfr Non- 103.3 >60 Egfr 125.0 >60 14 Laboratory test 10/17/2017 [facility] Lyme Disease Negative Negative [address] [place] [address] [phone] 1 Leukocytosis with mild absolute lymphocytosis. Appropriate clinical follow-up should be considered. Reviewed by Dr. Grider 2 SEE RESULT BELOW Name: JONN STUBBS : [address]: Seth Perez MD Acct: [id number] Unit: [id number] AGE: 38 Location: ED Re04/10/18 SEX: F Status: DEP ER SPEC: [id number] YAHAIRA: 04/10/18 [facility] DR: Seth Perez MD REQ: [id number] RECD: 04/10/18 STATUS: STAS JORDAN DR: Donavan To MD _ [facility]: Urine Culture Procedure Result Reported Site Urine Culture Final 04/11/18- 1603 ML No growth of clinically significant organisms * ML - Main Lab . END OF REPORT DEPARTMENT OF PATHOLOGY, [address] [place] [address] Carson Grider M.D. Director [facility] # [id number] 3 Because ethnic data is not always readily [...] 15-29 5 Kidney failure <15 (or dialysis) 4 [facility] Severe Sepsis and Septic Shock Management Bundle Measure requires all lactic acids initially measuring >2.0 mmol/L be repeated. 5 Normally menstruating females - Follicular phase 3 - 9 - Mid-cycle peak 4 - 23 - Luteal phase 1 - 6 Postmenopausal females 16 - 114 6 Normally menstruating females - Follicular Phase 1 - 18 - Mid-Cycle Peak 24 - 105 - Luteal Phase 0.6 - 20 Postmenopausal females 15 - 62 7 ADDITIONAL INFORMATION Testing performed by [facility]. This test was developed and its performance characteristics determined by [facility] in a manner consistent with CLIA requirements. This test has not been cleared or approved by the U.S. Food and Drug Administration. 8 ADDITIONAL INFORMATION Testing performed by Liquid Chromatography-Tandem Mass Spectrometry (LC-MS/MS). This test was developed and its performance characteristics determined by [facility] in a manner consistent with CLIA requirements. This test has not been cleared or approved by the U.S. Food and Drug Administration. Test Performed by: [facility] [address] [place] [address] 9 Desirable: <150 Borderline High: 150-199 High: 200-499 Very High: >500 10 Desirable: <200 Borderline High: 200-239 High: >239 11 Low: <40 Desirable: 40-60 High: >60 12 Desirable: <100 Near Optimal: 100-129 Borderline High: 130-159 High: 160-189 Very High: >189 13 Because ethnic data is not always readily [...] 15-29 5 Kidney failure <15 (or dialysis) 14 Because ethnic data is not always readily [...] 15-29 5 Kidney failure <15 (or dialysis) 15 No evidence of antibodies to B. burgdorferi detected. False negative results may occur in recently infected patients (<=2 weeks) due to low or undetectable antibody levels to B. burgdorferi. If recent exposure is suspected, a second sample should be collected and tested in 2-4 weeks. Test Performed by: [facility] [address] [place] [address] Procedures Date Code Description Status 09/12/2018 12340 Sleep Study Unattended,HRT Rate,Oxygen Sat,Resp Completed Effort/Airflow 04/27/2018 [id number] Bone Mineral Density Test Completed 03/31/2018 [id number] Diabetic Foot Exam Completed 11/21/2017 46977 EKG Tracing & Interpretation Completed 11/07/2017 [id number] Mammogram Completed Encounters Type Date Location Provider Dx Diagnosis Office Visit 11/06/2018 [facility] Abigail Caldwell MD F33.9 Major depressive 8:00a Medicine - Ccmob disorder, recurrent, unspecified F39 Unspecified mood [affective] disorder G47.00 Insomnia, unspecified Office Visit 09/24/2018 8:00a [facility] Abigail Caldwell F33.9 Major depressive Medicine - Ccmob MD disorder, recurrent, unspecified R45.87 Impulsiveness F39 Unspecified mood [affective] disorder 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, sequela G47.00 Insomnia, unspecified F43.10 Post-traumatic stress disorder, unspecified Office Visit 09/01/2018 8:30a [facility] Margarita Maxime, R06.83 [facility] R53.83 Other fatigue Office Visit 08/25/2018 9:20a [facility] Gini Marsh MD L85.3 Xerosis cutis L56.4 Polymorphous light eruption L40.8 Other psoriasis 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 Office Visit 08/13/2018 9:40a [facility] Abigail Caldwell F33.9 Major depressive Medicine - Ccmob MD disorder, recurrent, unspecified R45.4 Irritability and anger Office Visit 06/18/2018 10:00a [facility] Abigail Caldwell F33.9 Major depressive Medicine - Suite MD disorder, R recurrent, unspecified N32.81 Overactive bladder N39.41 Urge incontinence R45.4 Irritability and anger G47.9 Sleep disorder, unspecified Office Visit 06/08/2018 [facility] Occupational Tam S13.4xxD Sprain of 2:39p Health MD Cristian ligaments of cervical spine, subsequent encounter S22.31xD Fracture of one rib, right side, subs for fx w routn heal Z04.2 Encounter for exam and observation following work accident Office Visit 05/25/2018 10:00a [facility] Abigail Caldwell F33.9 Major depressive Medicine - Suite MD disorder, R recurrent, unspecified R45.4 Irritability and anger E55.9 Vitamin D deficiency, unspecified M84.376D Stress fracture, unsp foot, subs for fx w routn heal Office Visit 05/22/2018 [facility] Occupational Tam S13.4xxD Sprain of 2:37p Dakota Foster MD ligaments of cervical spine, subsequent encounter S22.31xD Fracture of one rib, right side, subs for fx w routn heal S46.811D Strain of musc/fasc/tend at shldr/up arm, right arm, subs S46.812D Strain of musc/fasc/tend at shldr/up arm, left arm, subs Z04.2 Encounter for exam and observation following work accident Office Visit 05/12/2018 4:10p [facility] Gini Marsh, 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 L85.3 Xerosis cutis Office Visit 05/07/2018 [facility] Occupational Tam S13.4xxD Sprain of 2:34p Dakota Foster MD ligaments of cervical spine, subsequent encounter S22.31xD Fracture of one rib, right side, subs for fx w routn heal S46.812D Strain of musc/fasc/tend at shldr/up arm, left arm, subs S09.90xD Unspecified injury of head, subsequent encounter Z04.2 Encounter for exam and observation following work accident Office Visit 04/30/2018 9:00a [facility] Rena Elpidio, M79.672 Pain in Medicine-Maria Tshelby left foot F17.210 Nicotine dependence, cigarettes, uncomplicated E55.9 Vitamin D deficiency, unspecified F33.9 Major depressive disorder, recurrent, unspecified Office Visit 04/02/2018 2:20p [facility] Donavan M85.80 Oth disrd of bone Medicine - Philipp To density and Suite R structure, unspecified site E28.2 Polycystic ovarian syndrome Office Visit 03/19/2018 [facility] Donavan F91.8 Other conduct 9:40a Medicine - Suite Philipp To disorders R Office Visit 01/23/2018 [facility] Gini Marsh, L30.9 Dermatitis, 9:20a unspecified Office Visit 01/16/2018 [facility] Donavan F91.8 Other conduct 10:00a Medicine - Suite Philipp To disorders R L98.9 Disorder of the skin and subcutaneous tissue, unspecified M79.672 Pain in left foot Office Visit 12/05/2017 8:00a [facility] Donavan Ratliffshreya, F91.8 Other conduct Medicine - M.DRoge disorders Suite R L23.89 Allergic contact dermatitis due to other agents Z13.220 Encounter for screening for lipoid disorders Z13.1 Encounter for screening for diabetes mellitus Office Visit 11/21/2017 8:20a [facility] Donavan Ratliffshreya, F91.8 Other conduct Medicine - M.DRoge disorders Suite R 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 unidentified Suite R influenza virus w oth manifest S80.269A Insect bite (nonvenomous), unspecified knee, init encntr Office 09/30/2017 [facility] Seth Crum Z48.02 Encounter for Visit 10:20a Fabrice Mora M.D. removal of sutures Office 09/26/2017 [facility] Medicine - Mariela S01.111D Laceration w/ o Visit 11:00a Darrius Arreola M.D. fb of right eyelid and periocular area, subs Office 09/05/2017 [facility] Medicine - Cristinaofirosanna N64.4 Mastodynia Visit 3:40p Suite R HAKAN Gonzalez N39.46 Mixed incontinence Office Visit 07/15/2017 3:20p [facility] Donavanhan To, Z00.01 Encounter for Kev Lowe M.D. general adult Suite R medical exam w abnormal findings F17.210 Nicotine dependence, cigarettes, uncomplicated Plan of Treatment Future Appointment(s):12/25/2018 8:20 am - [facility]bigail Caldwell [facility] at [facility] 11:15 am - Angelika Green DNP, RN, WEED CONTROLLER-BC at [facility]01/12/2019 9:30 am - Gini aMrsh MD at [facility] Bvtgjzzgeel28/19/2019 - Abigail Caldwell MDK62.5 Hemorrhage of anus and rectumComments:I am referring you to the emergency department for some urgent imaging, because you have rectal bleeding with pain in the abdomen, which may represent colitis, which is an inflammation of the colon.
--- OUTSIDE RECORDS SUMMARY | 2018-11-20 17:02 | XMS REPORT | Continuity of Care Document ---
:1980 External Reference #:[id number] Author Name Mayra Wilkinson Care Team Providers Name Role Phone Abigail Caldwell M.D. Primary Care Physician Unavailable Payers Date Identification Numbers Payment Provider Subscriber Policy Number: [id number] Mauri Stubbs PayID: [id number] [address] [place] [address] Onset: 2018 Policy Number: [id number] [employer] Jonn Stubbs Group Number: [id number] [address] Group Name: [id number] [place] [address] PayID: [id number] Problems Active Problems Provider Date Allergic contact [...] y/o son who lives with father in [place] Occupation Currently Working nursing associate ETOH Use Denies alcohol use Tobacco Use Start: Unknown Light tobacco smoker (10 or fewer cigarettes/day) Recreational Drug Use Denies Drug Use Now admits to THC occasional Smoking Status Reviewed: 11/06/18 Light tobacco smoker (10 or fewer cigarettes/day) [...] week 4tabs Abigail Caldwell MD 04/09/2018 Potency [id number] Tablets Oxybutynin Chloride Take One Tablet 30tabs [...] 06/18/2018 Haloperidol take one tablet 30tabs F33.9 [facility], 04/30/2018 - 0.5mg daily 06/18/2018 Tablets Haloperidol Lactate 1/4 milliliters 15ml F91.8 Abigail Caldwell, 03/19/2018 - daily 06/18/2018 2mg/ml Concentrate Betamethasone apply thin layer 90gm L23.89 [place] 12/05/2017 - Dipropionate twice daily over [place], 01/16/2018 0.05% elbow lesions MRogeDRoge Ointment Haloperidol once daily 30tabs F91.8 [place] 11/21/2017 - 0.5mg [place], 03/19/2018 Tablets M.D. Oseltamivir Phosphate 1 cap twice a day 10caprené J11.89 [place] 10/16/2017 - [place]ara, 11/21/2017 75mg Capsules M.D. No Active Medications Unknown 07/15/2017 - 10/16/2017 Docusate Sodium take 1 tab at Unknown - 100mg bedtime as needed 01/16/2018 Tablets for constipation Td(Adult),Unspecified Unknown Injection Vital Signs Date Vital Result Comment 11/06/2018 8:15am Height 65.50 inches 5'5.50" Weight [...] Result H/L Range Note Laboratory test 04/10/2018 [facility] Pathologist (SEE NOTE) [address] [place] [address] [phone] Urine Culture And 04/10/2018 [facility] Urine Culture SEE RESULT [address] [place] [address] [phone] Urinalysis Profile 04/10/2018 [facility] Urine Color Yellow [address] [place] [address] [phone] Urine Appearance Cloudy Urine Specific Rodman 1.034 High 1.010-1.030 Urine pH 6.0 N [...] Cell Present Abnormal Absent CBC Auto 04/10/2018 [facility] White Blood 11.7 10^3/uL High 3.5-10.[address] [place] [address] [phone] Red Blood Count 4.92 10^6/uL N 4.00-5.40 [...] Cells % 0 Comp Metabolic Panel 04/10/2018 [facility] Sodium 137 mmol/L N 135-[address] [place] [address] [phone] Potassium 4.0 mmol/L N 3.5-5.0 Chloride 108 [...] Egfr 114.0 >60 3 Laboratory test 04/10/2018 [facility] Lactic Acid 0.8 mmol/L N 0.5-2.[address] [place] [address] [phone] Laboratory test 04/04/2018 [facility] TSH (Thyroid 0.58 mcIU/mL N 0.34-5.[address] Stim Horm) [place] [address] [phone] Vitamin D Total 25(Oh) 14.9 ng/mL Low 20-50 FSH And LH 04/04/2018 [facility] FSH (Follicle Stim 11.0 mIU/mL [address] Hormone) [place] [address] [phone] LH (Lutenizing Hormone) 18.5 mIU/mL 6 Testosterone Free 04/04/2018 [facility] Free 0.72 0.06-0.98 7 & Total 101 Testosterone ng/[place] [address] ng/dl [phone] Testosterone 30 ng/dL 8-60 8 Lipid Profile 12/27/2017 [facility] Triglycerides 127 mg/dL 9 (Trig/Chol/HDL) [address] [place] [address] [phone] Cholesterol 214 mg/dL 10 HDL Cholesterol 61.7 mg/dL 11 LDL Cholesterol 127 mg/dL 12 Basic Metabolic Panel 12/27/2017 [facility] Sodium 139 mmol/L N 135-[address] [place] [address] [phone] Potassium 4.5 mmol/L N 3.5-5.0 Chloride 105 mmol/L N 101-111 Co2 Carbon Dioxide 28 mmol/L N 22-32 Anion Gap 6 mmol/L N 2-11 Glucose 92 mg/dL N 70-100 Blood Urea Nitrogen 7 mg/dL N 6-24 Creatinine 0.67 mg/dL N 0.51-0.95 BUN/Creatinine Ratio 10.4 N 8-20 Calcium 9.4 mg/dL N 8.6-10.3 Egfr Non- 98.0 >60 Egfr 118.6 >60 13 Comp Metabolic Panel 11/24/2017 [facility] Sodium 139 mmol/L N 135-[address] [place] [address] [phone] Potassium 4.0 mmol/L N 3.5-5.0 Chloride 104 [...] Egfr 125.0 >60 14 Laboratory test 10/17/2017 [facility] Lyme Disease Negative Negative [address] [place] [address] [phone] 1 Leukocytosis with mild absolute lymphocytosis. Appropriate clinical follow-up should be considered. Reviewed by Dr. Grider 2 SEE RESULT BELOW Name: JONN STUBBS : [address]: Seth Perez MD Acct: [id number] Unit: [id number] AGE: 38 Location: ED Re04/10/18 SEX: F Status: DEP ER SPEC: [id number] YAHAIRA: 04/10/18-[address]: Seth Perez MD REQ: [id number] RECD: 04/10/18 STATUS: COMP [facility] DR: [place] To MD _ SOURCE: URINE SPDESC: ORDERED: Urine Culture Procedure Result Reported Site Urine Culture Final 04/11/18- 1603 ML No growth of clinically significant organisms * ML - Main Lab . END OF REPORT DEPARTMENT OF PATHOLOGY, [address] [place] [address] Carson Grider M.D. Director [facility] # [id number] 3 Because ethnic data is not always [...] 5 Kidney failure <15 (or dialysis) 4 [facility] Severe Sepsis and Septic Shock Management Bundle [...] developed and its performance characteristics determined by [facility] in a manner consistent with CLIA requirements. This test has not been cleared or approved by the U.S. Food and Drug Administration. 8 ADDITIONAL INFORMATION Testing performed by Liquid Chromatography-Tandem Mass Spectrometry (LC-MS/MS). This test was developed and its performance characteristics determined by [facility] in a manner consistent with CLIA requirements. This test has not been cleared or approved by the U.S. Food and Drug Administration. Test Performed by: [facility] [address] [place] [address] 9 Desirable: <150 Borderline High: 150-199 High: [...] tested in 2-4 weeks. Test Performed by: [facility] [address] [place] [address] Procedures Date Code Description Status 09/12/2018 44321 Sleep Study Unattended,HRT Rate,Oxygen Sat,Resp Completed Effort/Airflow 04/27/2018 [id number] Bone Mineral Density Test Completed 03/31/2018 [id number] Diabetic Foot Exam Completed 11/21/2017 66982 EKG Tracing & Interpretation Completed 11/07/2017 [id number] Mammogram Completed Encounters Type Date Location Provider Dx Diagnosis Office Visit 09/24/2018 [facility] Abigail Caldwell MD F33.9 Major depressive 8:00a Medicine - Ccmob disorder, recurrent, unspecified R45.87 Impulsiveness F39 Unspecified mood [affective] disorder 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, sequela G47.00 Insomnia, unspecified F43.10 Post-traumatic stress disorder, unspecified Office Visit 09/01/2018 8:30a Pulmonology [facility] Sleep Margarita Swartz, R06.83 [facility] R53.83 Other fatigue Office Visit 08/25/2018 9:20a [facility] Dermatology Gini Marsh MD L85.3 Xerosis cutis L56.4 Polymorphous light eruption L40.8 Other psoriasis 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 Office Visit 08/13/2018 9:40a [facility] Internal Abigail Paulette, F33.9 Major depressive Medicine - Ccmob MD disorder, recurrent, unspecified R45.4 Irritability and anger Office Visit 06/18/2018 10:00a [facility] Internal Abigailrosanna Caldwell, F33.9 Major depressive Medicine - Suite MD disorder, R recurrent, unspecified N32.81 Overactive bladder N39.41 Urge incontinence R45.4 Irritability and anger G47.9 Sleep disorder, unspecified Office Visit 06/08/2018 [facility] Occupational Tam S13.4xxD Sprain of 2:39p Dakota Foster MD ligaments of cervical spine, subsequent encounter S22.31xD Fracture of one rib, right side, subs for fx w routn heal Z04.2 Encounter for exam and observation following work accident Office Visit 05/25/2018 10:00a [facility] Internal Abigail Caldwell, F33.9 Major depressive Medicine - Suite MD disorder, R recurrent, unspecified R45.4 Irritability and anger E55.9 Vitamin D deficiency, unspecified M84.376D Stress fracture, unsp foot, subs for fx w routn heal Office Visit 05/22/2018 [facility] Occupational Tam S13.4xxD Sprain of 2:37p Dakota Foster MD ligaments of cervical spine, subsequent encounter S22.31xD Fracture of one rib, right side, subs for fx w routn heal S46.811D Strain of musc/fasc/tend at shldr/up arm, right arm, subs S46.812D Strain of musc/fasc/tend at shldr/up arm, left arm, subs Z04.2 Encounter for exam and observation following work accident Office Visit 05/12/2018 4:10p [facility] Dermatology Gini Marsh, 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 L85.3 Xerosis cutis Office Visit 05/07/2018 [facility] Occupational Tam S13.4xxD Sprain of 2:34p Dakota Foster MD ligaments of cervical spine, subsequent encounter S22.31xD Fracture of one rib, right side, subs for fx w routn heal S46.812D Strain of musc/fasc/tend at shldr/up arm, left arm, subs S09.90xD Unspecified injury of head, subsequent encounter Z04.2 Encounter for exam and observation following work accident Office Visit 04/30/2018 9:00a DoNotUse [facility] Internal Rena Haqaz, M79.672 Pain in Medicine-[place] left foot F17.210 Nicotine dependence, cigarettes, uncomplicated E55.9 Vitamin D deficiency, unspecified F33.9 Major depressive disorder, recurrent, unspecified Office Visit 04/02/2018 2:20p [facility] Internal [place] M85.80 Oth disrd of bone Medicine Chrissy To M.D. density and Suite R structure, unspecified site E28.2 Polycystic ovarian syndrome Office Visit 03/19/2018 [facility] Internal [place] F91.8 Other conduct 9:40a Medicine - Suite [place] To disorders R Office Visit 01/23/2018 [facility] Dermatology Gini Marsh, L30.9 Dermatitis, 9:20a unspecified Office Visit 01/16/2018 [facility] Internal [place] F91.8 Other conduct 10:00a Medicine - Jesus To M.D. disorders R L98.9 Disorder of the skin and subcutaneous tissue, unspecified M79.672 Pain in left foot Office Visit 12/05/2017 8:00a [facility] Internal [place] To, F91.8 Other conduct Medicine - Philipp disorders Suite R L23.89 Allergic contact dermatitis due to other agents Z13.220 Encounter for screening for lipoid disorders Z13.1 Encounter for screening for diabetes mellitus Office Visit 11/21/2017 8:20a [facility] Internal [place] To, F91.8 Other conduct Medicine - [place] disorders Suite R I45.89 Other specified conduction disorders Office Visit 10/16/2017 2:40p [facility] Internal [place] J11.89 Influenza due to Kev - Philipp To unidentified Suite R influenza virus w oth manifest S80.269A Insect bite (nonvenomous), unspecified knee, init encntr Office 09/30/2017 [facility]NotUse [facility] Internal Seth BlakeRoge Z48.02 Encounter for Visit 10:20a Medicine-Florin Mora M.D. removal of sutures Office 09/26/2017 [facility] Internal Medicine - Mariela S01.111D Laceration w/ o Visit 11:00a Darrius Arreola M.D. fb of right eyelid and periocular area, subs Office 09/05/2017 [facility] Internal Medicine - Damion N64.4 Mastodynia Visit 3:40p Suite R HAKAN Gonzalez N39.46 Mixed incontinence Office Visit 07/15/2017 3:20p [facility] Internal Donavanhan To, Z00.01 Encounter for Kev - [place] general adult Suite R medical exam w abnormal findings F17.210 Nicotine dependence, cigarettes, uncomplicated Plan of Treatment Future Appointment(s):12/25/2018 8:20 am - Abigail Caldwell MD at [facility] Internal Medicine - [facility]12/07/2018 11:15 am - Angelika Green DNP, RN, CHIEF RADIOLOGY-BC at [facility]01/12/2019 9:30 am - Gini Marsh MD at [facility] Cwagorpluuy73/05/2019 - Abigail Caldwell MDF33.9 Major depressive disorder, recurrent, unspecifiedFollow up:re schedule PE later in Unspecified mood [affective] kyrbutzeR78.00 Insomnia, unspecifiedNew Medication:Hydroxyzine HCL 25 mg - 1-2 tabs by mouth at bedtime as needed insomnia
[2018-11-20 18:29] LABS: ABS Basophils 0.1 10^3/ul (0-0.2); ABS Eosinophils 0.4 10^3/ul (0-0.6); ABS Lymphocytes 4.9 10^3/ul (1.0-4.8); ABS Monocytes 0.8 10^3/ul (0-0.8); ABS Neutrophils 5.1 10^3/ul (1.5-7.7); Eosinophil % 3.6 %; Hematocrit 44 % (35-47); Hemoglobin 14.5 g/dL (12.0-16.0); Lymphocyte % 43.4 %; Mean Corpuscular HGB Conc 33 g/dL (31-36); Mean Corpuscular Hemoglobin 29 pg (27-31); Mean Corpuscular Volume 86 fL (80-97); Mean Platelet Volume 8.7 fL (7.4-10.4); Platelet Count 337 10^3/uL (150-450); Red Blood Count 5.04 10^6 /uL (3.70-4.87); Red Cell Distribution Width 14 % (10-15); White Blood Count 11.2 10^3/uL (3.5-10.8)
[2018-11-20 18:38] VITALS: BP 135/89
[2018-11-20 18:47] LABS: Albumin 4.2 g/dL (3.2-5.2); Albumin/Globulin Ratio 1.6 (1-3); BUN/Creatinine Ratio 6.5 (8-20); Calcium 9.4 mg/dL (8.6-10.3); EGFR African American 100.5 (>60); Globulin 2.7 g/dL (2-4); Potassium 3.8 mmol/L (3.5-5.0); Total Bilirubin 0.4 mg/dL (0.2-1.0); Total Protein 6.9 g/dL (6.4-8.9)
[2018-11-20 18:53] LABS: HCG Pregnancy 1.55 mIU/mL
[2018-11-20 19:22] LABS: Urine Appearance Clear; Urine Bacteria Absent (Absent); Urine Bilirubin Negative (Negative); Urine Blood Negative (Negative); Urine Color Yellow; Urine Glucose Negative (Negative); Urine Ketones Negative (Negative); Urine Nitrite Negative (Negative); Urine Protein Negative (Negative); Urine Red Blood Cell Trace(0-2/hpf) (Absent); Urine Specific Gravity 1.008 (1.010-1.030); Urine Squamous Epithelial Cell Present (Absent); Urine Urobilinogen Negative (Negative); Urine White Blood Cell Trace(0-5/hpf) (Absent)
== END | disposition left against medical advice (07) ==
LOC: ED 16:48
DX: Z53.21 Procedure and treatment not carried out due to patient leaving prior to being seen by health care provider (principal)
CPT/HCPCS: 36415; 80053; 81003; 81015; 84702; 85025; 87077; 87086; 87186; 99282

== ENCOUNTER 2019-03-23 13:50 | Emergency (ER) | payer BC, OTHER ==
[2019-03-23 14:41] VITALS: BP 130/75
--- NOTE | 2019-03-23 15:07 | UC ---
Respiratory Complaint HPI - HPI Summary HPI Summary: 3 DAYS OF CONSTANT DIFFUSE CHEST PAIN. PATIENT IS UNABLE TO FURTHER DESCRIBE IT. THE PAIN IS RADIATING INTO BOTH HER SHOULDERS AND THE BACK OF HER NECK. SHE HAS ASSOCIATED SHORTNESS OF BREATH AND SWEATS. FEELS WORSE WITH EXERTION. DENIES ANY COUGH OR CONGESTION. NO EAR PAIN OR FEVER. HAD A SORE THROAT INITIALLY BUT THAT HAS SINCE COMPLETELY RESOLVED. - History of Current Complaint Chief Complaint: UCRespiratory Stated Complaint: SINUS AND CHEST CONGESTION Time Seen by Provider: 03/23/19 14:53 Hx Obtained From: Patient Onset/Duration: Gradual Onset, Lasting Days, Still Present Timing: Constant Severity Initially: Moderate Severity Currently: Moderate Pain Intensity: 2 Pain Scale Used: 0-10 Numeric Aggravating Factors: Exertion Alleviating Factors: Nothing Associated Signs And Symptoms: Positive: Dyspnea. Negative: Pleuritic Chest Pain, Wheezing - Allergies/Home Medications Allergies/Adverse Reactions: Allergies Allergy/AdvReac Type Severity Reaction Status Date / Time aspirin Allergy GI Upset Verified 03/23/19 14:35 dextromethorphan Allergy Hives Verified 03/23/19 14:35 [From Dimetapp Cold-Congestion] diphenhydramine Allergy Hives Verified 03/23/19 14:35 [From Dimetapp Cold-Congestion] guaifenesin Allergy Hives Verified 03/23/19 14:35 [From Dimetapp Cold-Congestion] ketorolac [From Toradol] Allergy Vomiting Verified 03/23/19 14:35 latex Allergy Rash Verified 03/23/19 14:35 morphine Allergy hypotension Verified 03/23/19 14:35 and bradycardia paroxetine [From Paxil] Allergy Altered Verified 03/23/19 14:35 Mental Status phenylephrine Allergy Hives Verified 03/23/19 14:35 [From Dimetapp Cold-Congestion] pseudoephedrine Allergy Hives Verified 03/23/19 14:35 [From Dimetapp Cold-Congestion] sertraline [From Zoloft] Allergy Altered Verified 03/23/19 14:35 Mental Status tramadol Allergy Vomiting Verified 03/23/19 14:35 trazodone AdvReac Headache Verified 03/23/19 14:35 cinnamon Allergy Rash Uncoded 03/23/19 14:35 Home Medications: Home Medications D-Methorphan/PE/Acetaminophen [Cold Multi-Symptom Gelcap] 1 tab PO Q12HR PRN [History Confirmed 03/23/19] PMH/Surg Hx/FS Hx/Imm Hx - Additional Past Medical History Additional PMH: H/O TBI Psychological History: Depression - Surgical History Surgical History: Yes Surgery Procedure, Year, and Place: L5-S1 surgery age 21. hysterectomy - Family History Known Family History: Negative: Hypertension - Social History Alcohol Use: None Substance Use Type: None Smoking Status (MU): Current Every Day Smoker Amount Used/How Often: < 1ppd Review of Systems All Other Systems Reviewed And Are Negative: Yes Constitutional: Positive: Fatigue ENT: Positive: Sore Throat Respiratory: Positive: Negative Cardiovascular: Positive: Chest Pain Gastrointestinal: Negative: Abdominal Pain, Vomiting, Nausea Genitourinary: Positive: Negative Musculoskeletal: Positive: Myalgia Psychological: Positive: Depressed Physical Exam Triage Information Reviewed: Yes Appearance: Well-Appearing, No Pain Distress, Well-Nourished Vital Signs: Initial Vital Signs Temp 98.9 F 03/23/19 14:36 Pulse 68 03/23/19 14:36 Resp 18 03/23/19 14:36 BP 130/75 03/23/19 14:36 Pulse Ox 98 03/23/19 14:36 Vital Signs Reviewed: Yes Eyes: Positive: Conjunctiva Clear ENT: Positive: Hearing grossly normal, Pharynx normal, TMs normal Neck: Positive: Supple, Nontender, No Lymphadenopathy Respiratory Exam: Normal Cardiovascular Exam: Normal Abdomen Description: Positive: Soft Musculoskeletal: Positive: No Edema Neurological: Positive: Alert Psychological: Positive: Age Appropriate Behavior Skin: Negative: Rashes Diagnostics - Radiology CXR Radiology Interpretation Completed By: Radiologist Summary of Radiographic Findings: NO EVIDENCE FOR ACTIVE CARDIOPULMONARY DISEASE. Respiratory Course/Dx - Course Course Of Treatment: I DISCUSSED WITH THE PATIENT OUR INABILITY TO ADEQUATELY EVALUATE FOR ANY UNDERLYING CARDIAC CAUSE OF HER SYMPTOMS. GIVEN SHE IS COMPLAINING OF DIFFUSE CHEST PAIN, SHOULDER PAIN, SHORTNESS OF BREATH AND SWEATS THAT IS WORSE WITH EXERTION I STRONGLY RECOMMENDED SHE GO DIRECTLY TO THE EMERGENCY ROOM FOR FURTHER EVALUATION. PATIENT DECLINES STATING WORK OBLIGATIONS AND FINANCIAL PROBLEMS. ADDITIONALLY SHE IS NOT CONCERNED THAT THERE IS ANY CARDIAC ISSUE HERE TODAY. CBC, CMP, TSH DRAWN. PREDNISONE TO HELP WITH ANY AIRWAY INFLAMMATION. ADVISED THAT SHE COULD BE RISKING WORSENING OF HER CONDITION THAT COULD POSE A THREAT TO HER LIFE, HEALTH AND MEDICAL SAFETY. SHE VERBALIZES UNDERSTANDING AND CONTINUES TO DECLINE TRANSFER. THE PATIENT IS CLINICALLY SOBER, FREE FROM DISTRACTING INJURY, APPEARS TO HAVE INTACT INSIGHT, JUDGMENT, AND REASON, AND IN MY OPINION HAS THE CAPACITY TO MAKE DECISIONS. - Differential Dx/Diagnosis Provider Diagnosis: Chest pain Discharge ED - Sign-Out/Discharge Documenting (check all that apply): Patient Departure All imaging exams completed and their final reports reviewed: Yes - Discharge Plan Condition: Stable Disposition: HOME Prescriptions: predniSONE TAB* [Deltasone TAB*] 50 mg PO DAILY #4 tab Patient Education Materials: Chest Pain (ED) Referrals: Abigail Caldwell MD [Primary Care Provider] - 2 Days Additional Instructions: DISCUSSED I HAVE NO WAY TO ADEQUATELY EVALUATE YOU FOR ANY UNDERLYING CARDIAC CONDITION. GIVEN YOUR SYMPTOMS I FEEL ER EVALUATION IS YOUR SAFEST OPTION. YOU HAVE DECLINED TRANSFER TO THE ER TODAY WITH THE UNDERSTANDING THAT YOUR CONDITION MAY WORSEN LEADING TO RESPIRATORY DISTRESS/FAILURE, CARDIAC ARREST, /DISABILITY. EKG UNREMARKABLE. CXR UNREMARKABLE. BLOOD COUNT, METABOLIC PANEL AND THYROID TESTS DRAWN TODAY. PREDNISONE TO HELP WITH YOUR COUGH AND AIRWAY INFLAMMATION. GO TO THE ER WITHOUT FAIL IF YOUR SYMPTOMS WORSEN. - Billing Disposition and Condition Condition: STABLE Disposition: Home
[2019-03-23] MEDS ORDERED: predniSONE TAB* 20 MG PO ONE (15:40)
== END 2019-03-23 17:00 | disposition home or self-care (01) ==
LOC: UCEAST 13:50
DX: R07.9 Chest pain, unspecified (principal); J02.9 Acute pharyngitis, unspecified; M79.10 Myalgia, unspecified site; R53.83 Other fatigue; Z88.5 Allergy status to narcotic agent; Z88.6 Allergy status to analgesic agent; Z88.8 Allergy status to other drugs, medicaments and biological substances; Z91.040 Latex allergy status; Z91.018 Allergy to other foods; F17.210 Nicotine dependence, cigarettes, uncomplicated
CPT/HCPCS: 71046; 93005; 99212; G0463; J7512

== ENCOUNTER 2019-05-05 19:08 | Emergency (ER) | payer OTHER ==
--- OUTSIDE RECORDS SUMMARY | 2019-05-05 19:12 | XMS REPORT | Continuity of Care Document ---
:1980 External Reference #:[id number] Author Name Marlon Acosta M.D. (transmitted by agent of provider Dea Penny) Address [address] [facility] [address] [place] [address] Care Team Providers Name Role Phone Joe Torrez MD - Dermatology Care Team Information Medical Office Clerk [phone] Mirian Walker DPM - Energy Projects Lead Care Team Information Medical Office Clerk Abigail Caldwell M.D. - Family Medicine Care Team Information Medical Office Clerk Problems Active Problems Provider Date Tobacco user Donavan To M.D. Onset: 07/15/2017 Temper problem Donavan To M.D. Onset: 11/21/2017 Allergic contact dermatitis due to other Don[place] To M.D. Onset: 2017 agents Social History Type Date Description Comments Sex Unknown ETOH Use Denies alcohol use Tobacco Use Start: Unknown Light tobacco smoker (10 or fewer cigarettes/day) Recreational Drug Use Denies Drug Use Now admits to THC occasional Smoking Status Reviewed: 12/25/18 Light tobacco smoker (10 or fewer cigarettes/day) [...] Medications SIG Qnty Indications Ordering Provider Date Cipro 1 tab twice a 14tabs Abigail Caldwell MD 12/31/2018 500mg Tablets day for 7 days Vitamin D-1000 take one Abigail Caldwell MD 12/25/2018 Maximum Strength capsule/tablet daily by mouth 1000Unit Tablets Oxybutynin Chloride Take One Tablet 30tabs Abigail Caldwell MD ER By Mouth Once 5mg Tablets ER 24HR Daily History Medications Hydroxyzine HCL 1-2 tabs by mouth 60tabs G47.00 Abigail Caldwell MD 2018 - 25mg at bedtime as 12/11/2018 Tablets needed insomnia Divalproex Sodium one twice a day 60tabs F39 Abigail Caldwell MD 09/24/2018 - 12/11/[address] Gabapentin take 1-3 tablets 90caps G47.00 Abigail Caldwell MD 09/24/2018 - 300mg by mouth at 11/06/2018 Capsules bedtime as needed for insomnia Td(Adult),Unspecifie Unknown d Injection Immunizations Description No Information Available Vital Signs Date Vital Result Comment 12/25/2018 8:22am Height 65.50 inches 5'5.50" Weight 215.25 lb w/shoes Heart Rate 81 /min BP Systolic Sitting 118 mmHg Lue reg cuff BP Diastolic Sitting 78 mmHg Lue reg cuff O2 % BldC Oximetry 96 % BMI (Body Mass Index) 35.3 kg/m2 11/20/2018 3:51pm Height 65.50 inches 5'5.50" Weight 224.50 lb Heart Rate 86 /min BP Systolic Sitting 131 mmHg Lue reg cuff BP Diastolic Sitting 84 mmHg Lue reg cuff O2 % BldC Oximetry 98 % BMI (Body Mass Index) 36.8 kg/m2 Results Test Acquired Date Facility Test Result H/L Range Note Laboratory test 12/28/2018 [facility] TSH 2.28 Normal 0.34- 5.[address] (Thyroid mcIU/[place] [address] Stim Horm) [phone] CBC No Diff 12/28/2018 [facility] White 14.1 High 3.5-10.[address] Blood 10^3/[place] [address] Count [phone] Red Blood Count 5.20 10^6/uL High 3.70-4.87 Hemoglobin 15.0 g/dL Normal 12.0-16.0 Hematocrit 45 % Normal 35-47 Mean Corpuscular Volume 87 fL Normal 80-97 Mean Corpuscular Hemoglobin 29 pg Normal 27-31 Mean Corpuscular HGB Conc 33 g/dL Normal 31-36 Red Cell Distribution Width 13 % Normal 10-15 Platelet Count 321 10^3/uL Normal 150-450 Mean Platelet Volume 9.3 fL Normal 7.4-10.4 Urinalysis Profile 12/28/2018 [facility] Urine Color Straw [address] [place] [address] [phone] Urine Appearance Clear Urine Specific [place] 1.002 Low 1.010-1.030 Urine pH 6.0 Normal 5-9 Urine Urobilinogen Negative Negative Urine Ketones Negative Negative Urine Protein Negative Negative Urine Leukocytes Trace Abnormal Negative Urine Blood Negative Negative Urine Nitrite Negative Negative Urine Bilirubin Negative Negative Urine Glucose Negative Negative Urine White Blood Cell Trace(0-5/hpf) Absent Urine Red Blood Cell Trace(0-2/hpf) Absent Urine Bacteria 1+ Abnormal Absent Urine Squamous Epithelial Cell Present Abnormal Absent Urine Culture And 12/28/2018 [facility] Urine SEE RESULT [address] [place] [address] [phone] Laboratory test 12/22/2018 [facility] Vitamin D 75.9 ng/mL High 20-50 [address] Total 25(Oh) [place] [address] [phone] Comp Metabolic 12/22/2018 [facility] Sodium 138 mmol/L Normal 135-[address] [place] [address] [phone] Potassium 4.4 mmol/L Normal 3.5-5.0 Chloride 104 mmol/L Normal 101-111 Co2 Carbon Dioxide 28 mmol/L Normal 22-32 Anion Gap 6 mmol/L Normal 2-11 Glucose 93 mg/dL Normal 70-100 Blood Urea Nitrogen 6 mg/dL Normal 6-24 Creatinine 0.74 mg/dL Normal 0.51-0.95 BUN/Creatinine Ratio 8.1 Normal 8-20 Calcium 9.2 mg/dL Normal 8.6-10.3 Total Protein 6.2 g/dL Low 6.4-8.9 Albumin 4.2 g/dL Normal 3.2-5.2 Globulin 2.0 g/dL Normal 2-4 Albumin/Globulin Ratio 2.1 Normal 1-3 Total Bilirubin 0.50 mg/dL Normal 0.2-1.0 Alkaline Phosphatase 74 U/L Normal 34-104 Alt 26 U/L Normal 7-52 Ast 17 U/L Normal 13-39 Egfr Non- 86.9 >60 Egfr 105.2 >60 3 Laboratory test 12/22/2018 [facility] Hepatitis Bs Negative Negative [address] [place] [address] [phone] Syphillis Igg W/Reflex RPR Negative Negative GC/Chlamydia 12/22/2018 [facility] Chlamydia Negative Negative Amplified Rna [address] [place] [address] [phone] Neisseria gonorrhoeae (GC) Rna Negative Negative Hepatitis C Antibody 12/22/2018 [facility] HCV Index 0.01 s/c [address] [place] [address] [phone] Hepatitis C Antibody Negative Negative Laboratory 12/22/2018 [facility] Hepatitis B Negative Negative test finding [address] [place] [address] [phone] HIV 1&2 p24 12/22/2018 [facility] HIV 4th Negative Negative Screen [address] [place] [address] [phone] CBC Auto Diff 11/20/2018 [facility] White Blood 11.2 10^3/uL High 3.5-10.[address] [place] [address] [phone] Red Blood Count 5.04 10^6/uL High 3.70-4.87 Hemoglobin 14.5 g/dL Normal 12.0-16.0 Hematocrit 44 % Normal 35-47 Mean Corpuscular Volume 86 fL Normal 80-97 Mean Corpuscular Hemoglobin 29 pg Normal 27-31 Mean Corpuscular HGB Conc 33 g/dL Normal 31-36 Red Cell Distribution Width 14 % Normal 10-15 Platelet Count 337 10^3/uL Normal 150-450 Mean Platelet Volume 8.7 fL Normal 7.4-10.4 Abs Neutrophils 5.1 10^3/uL Normal 1.5-7.7 Abs Lymphocytes 4.9 10^3/uL High 1.0-4.8 Abs Monocytes 0.8 10^3/uL Normal 0-0.8 Abs Eosinophils 0.4 10^3/uL Normal 0-0.6 Abs Basophils 0.1 10^3/uL Normal 0-0.2 Abs Nucleated RBC 0.0 10^3/uL Granulocyte % 45.5 % Lymphocyte % 43.4 % Monocyte % 6.8 % Eosinophil % 3.6 % Basophil % 0.7 % Nucleated Red Blood Cells % 0.0 Comp Metabolic 11/20/2018 [facility] Sodium 138 mmol/L Normal 135-145 Panel [address] [place] [address] [phone] Potassium 3.8 mmol/L Normal 3.5-5.0 Chloride 105 mmol/L Normal 101-111 Co2 Carbon Dioxide 26 mmol/L Normal 22-32 Anion Gap 7 mmol/L Normal 2-11 Glucose 94 mg/dL Normal 70-100 Blood Urea Nitrogen 5 mg/dL Low 6-24 Creatinine 0.77 mg/dL Normal 0.51-0.95 BUN/Creatinine Ratio 6.5 Low 8-20 Calcium 9.4 mg/dL Normal 8.6-10.3 Total Protein 6.9 g/dL Normal 6.4-8.9 Albumin 4.2 g/dL Normal 3.2-5.2 Globulin 2.7 g/dL Normal 2-4 Albumin/Globulin Ratio 1.6 Normal 1-3 Total Bilirubin 0.40 mg/dL Normal 0.2-1.0 Alkaline Phosphatase 63 U/L Normal 34-104 Alt 15 U/L Normal 7-52 Ast 15 U/L Normal 13-39 Egfr Non- 83.0 >60 Egfr 100.5 >60 5 Laboratory test 11/20/2018 [facility] HCG 1.55 mIU/mL 6 finding [address] [place] [address] [phone] Urinalysis Profile 11/20/2018 [facility] Urine Color Yellow [address] [place] [address] [phone] Urine Appearance Clear Urine Specific [place] 1.008 Low 1.010-1.030 Urine pH 6.0 Normal 5-9 Urine Urobilinogen Negative Negative Urine Ketones Negative Negative Urine Protein Negative Negative Urine Leukocytes Trace Abnormal Negative Urine Blood Negative Negative Urine Nitrite Negative Negative Urine Bilirubin Negative Negative Urine Glucose Negative Negative Urine White Blood Cell Trace(0-5/hpf) Absent Urine Red Blood Cell Trace(0-2/hpf) Absent Urine Bacteria Absent Absent Urine Squamous Epithelial Cell Present Abnormal Absent Urine Culture And 11/20/2018 [facility] Urine Culture SEE RESULT [address] [place] [address] [phone] 2 SEE RESULT BELOW Name: SOILA STUBBS : [address]: Abigail Caldwell MD Acct: [id number] Unit: [id number] AGE: 38 Location: [facility] Re12/28/18 SEX: F Status: REG REF SPEC: [id number] YAHAIRA: 12/28/[address]: Abigail Caldwell MD REQ: [id number] RECD: 12/28/18 STATUS: COMP _ SOURCE: URINE SPDESC: ORDERED: Urine Culture Procedure Result Reported Site Urine Culture Final 12/30/18- 0953 ML Organism 1 ESCHERICHIA COLI [place] Count >100,000 (Many) CFU/ML 1. ESCHERICHIA COLI [facility]. RX --------- ------ Ampicillin 8 S Cefazolin <=4 S Cefepime <=1 S Ceftriaxone <=1 S Ciprofloxacin <=0.25 S Gentamicin <=1 S Levofloxacin <=0.12 S Meropenem <=0.25 S Nitrofurantoin 32 S Tetracycline <=1 S Pipercillin/Tazobactam <=4 S Trimethoprim/Sulfamethoxazole <=20 S Amoxicillin/Clavulanic Acid 8 S Aztreonam <=1 S Contact the Microbiology Department for any additional antibiotic reporting. * ML - Main Lab . END OF REPORT DEPARTMENT OF PATHOLOGY, [address] [place] [address] Carson Grider M.D. Director [facility] # [id number] 2 Total 25-Hydroxyvitamin D2 and D3 (25-OH-VitD) <10 ng/mL (severe deficiency) 10-19 ng/mL (mild to moderate deficiency) 20-50 ng/mL (optimum levels) 51-80 ng/mL (increased risk of hypercalciuria) >80 ng/mL (toxicity possible) 3 Because ethnic data is not always [...] 5 Kidney failure <15 (or dialysis) 4 Test Performed by: [facility] [place] [address] [place] [address] 5 Because ethnic data is not always [...] 5 Kidney failure <15 (or dialysis) 6 <5.0 Negative 5.0 - 25.0 Indeterminate (Repeat testing recommended after 72 hours) >25.0 Positive Perimenopausal women can display HCG levels of up to 20 mIU/mL 7 SEE RESULT BELOW Name: SOILA STUBBS DOB: [address]: Kahlil Daniels Acct: [id number] Unit: [id number] AGE: 38 Location: ED Re11/20/18 SEX: F Status: REG ER SPEC: [id number] YAHAIRA: 11/20/[address]: Silvana Spicer MD REQ: [id number] RECD: 11/20/18 STATUS: STAS JORDAN DR: [facility] Griselda Caldwell MD _ SOURCE: URINE SPDESC: ORDERED: Urine Culture Procedure Result Reported Site Urine Culture Final 11/22/18- 828 ML Organism 1 ESCHERICHIA COLI [place] Count 25-50,000 (Moderate) CFU/ML 1. ESCHERICHIA COLI M.I[facility]C. RX --------- ------ Ampicillin 8 S Cefazolin <=4 S Cefepime <=1 S Ceftriaxone <=1 S Ciprofloxacin <=0.25 S Gentamicin <=1 S Levofloxacin <=0.12 S Meropenem <=0.25 S Nitrofurantoin 32 S Tetracycline <=1 S Pipercillin/Tazobactam <=4 S Trimethoprim/Sulfamethoxazole <=20 S Amoxicillin/Clavulanic Acid 4 S Aztreonam <=1 S Contact the Microbiology Department for any additional antibiotic reporting. * ML - Main Lab . END OF REPORT DEPARTMENT OF PATHOLOGY, [address] [place] [address] Carson Grider M.D. Director [facility] # [id number] Procedures Date Code Description Status 04/27/2018 030105970 Bone Mineral Density Test Completed 03/31/2018 [id number] Diabetic Foot Exam Completed 11/07/2017 [id number] Mammogram Completed Medical Devices Description No Information Available Encounters Type Date Location Provider Dx Diagnosis Office Visit 01/12/2019 [facility] Dermatology Gini Marsh MD L40.8 Other psoriasis 9:30a L70.0 Acne vulgaris L24.9 Irritant contact dermatitis, unspecified cause Office Visit 12/25/2018 8:20a [facility] Max Caldwell MD Z00.01 Encounter for Medicine - [facility] general adult medical exam w abnormal findings Z20.2 Contact w and exposure to infect w a sexl mode of transmiss R53.83 Other fatigue 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 Office Visit 11/20/2018 3:40p Ijeoma Caldwell K62.5 [facility] Office Visit 11/06/2018 8:00a Ijeoma Caldwell F33.9 [facility] disorder, recurrent, unspecified F39 Unspecified mood [affective] disorder G47.00 Insomnia, unspecified Office Visit 09/24/2018 8:00a Ijeoma Caldwell, F33.9 Major depressive Medicine - [facility] disorder, recurrent, unspecified R45.87 Impulsiveness F39 Unspecified mood [affective] disorder 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, sequela G47.00 Insomnia, unspecified F43.10 Post-traumatic stress disorder, unspecified Assessments Date Code Description Provider 01/12/2019 L40.8 Other psoriasis Gini Marsh MD 01/12/2019 L70.0 Acne vulgaris Gini Marsh MD 01/12/2019 L24.9 Irritant contact dermatitis, unspecified cause Gini Marsh MD 12/25/2018 Z00.01 Encounter for general adult medical Abigail Caldwell MD examination with abnormal findings 12/25/2018 Z20.2 Contact with and (suspected) exposure to Abigail Caldwell MD infections with a predominantly sexual mode of transmission 12/25/2018 R53.83 Other fatigue Abigail Caldwell MD 12/25/2018 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 Abigail Caldwell MD 11/20/2018 K62.5 Hemorrhage of anus and rectum Abigail Caldwell MD 11/06/2018 F33.9 Major depressive disorder, recurrent, Abigail Caldwell MD unspecified 11/06/2018 F39 Unspecified mood [affective] disorder Abigail Caldwell MD 11/06/2018 G47.00 Insomnia, unspecified Abigail Caldwell MD 09/24/2018 F33.9 Major depressive disorder, recurrent, Abigail Caldwell MD unspecified 09/24/2018 R45.87 Impulsiveness Abigail Caldwell MD 09/24/2018 F39 Unspecified mood [affective] disorder Abigail Caldwell MD 09/24/2018 S06.2x0S Diffuse traumatic brain injury without loss of Abigail Caldwell MD consciousness 09/24/2018 G47.00 Insomnia, unspecified Abigail Caldwell MD 09/24/2018 F43.10 Post-traumatic stress disorder, unspecified Abigail Caldwell MD Plan of Treatment Future Appointment(s):05/11/2019 9:45 am - Gini Marsh MD at [facility] Qjggwwlfucj28/23/2019 - Abigail Caldwell MDZ00.01 Encounter for general adult medical examination with abnormal findingsComments:Recommendations for mammograms are to start screening at age 50 if you are low risk and have no family history. However, some medical societies recommend starting at age 40. Since you had one last year, you can get them every other year as discussed.You should get a vaginal pap smear every 5 years after a hysterectomy. I will request records from Dr. Matthews.Your cholesterol profile and other labs were reviewed today. Your vitamin D levels are too high, so please stop taking the supplement for 1 month, then go down to 1000 units every other day.Remember to wear sunscreen and see your dentist regularly.For optimum health, I recommend some form of regular exercise and integrating a lot of plant-based foods into your daily diet.Z20.2 Contact with and (suspected) exposure to infections with a predominantly sexual mode of transmissionComments:Your tests results are all dhmizxdbT26.83 Other fatigueComments:If all labs are normal, this may be from withdrawal of your medications.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Comments:repeat labs in 3 mo Functional Status Description No Information Available Mental Status Description No Information Available Referrals Description No Information Available
--- OUTSIDE RECORDS SUMMARY | 2019-05-05 19:12 | XMS REPORT | Continuity of Care Document ---
:1980 External Reference #:[id number] Author Name Seth Mora M.D. (transmitted by agent of provider Shila Cabrera ) Address [address], [place] [address] Care Team Providers Name Role Phone Joe Torrez MD - Dermatology Care Team Information Face Worker Mirian Walker DPM - Collaborative Physician Care Team Information Face Worker Abigail Caldwell M.D. - Family Medicine Care Team Information Face Worker [phone] Problems Active Problems Provider Date Tobacco user [...] admits to THC occasional Smoking Status Reviewed: 04/13/19 Light tobacco smoker (10 or fewer cigarettes/day) Exercise Type/Frequency Plans on starting to exercise again Allergies, Adverse Reactions, Alerts Active Allergies Reaction Severity Comments Date Ketorolac Tromethamine vomiting 07/15/2017 Ultram vomiting 07/15/2017 Morphine low blood pressure 07/15/2017 Zoloft vomiting 07/15/2017 Paxil homicidal thoughts 07/15/2017 Dimetapp Children's Cold And blisters in mouth 07/15/2017 Allergy Latex 04/02/2018 Trazodone Severe migraines 04/13/2019 Medications Active Medications SIG Qnty Indications Ordering Provider Date No Active Medications Unknown 04/13/2019 History Medications Cipro 1 tab twice a day 14tabs Abigail Caldwell MD 12/31/2018 - 500mg Tablets for 7 days 04/12/2019 Vitamin D-1000 take one Abigail Caldwell MD 12/25/2018 - Maximum Strength capsule/tablet 04/12/2019 daily by mouth 1000Unit Tablets Hydroxyzine HCL 1-2 tabs by mouth 60tabs G47.00 Abigail Caldwell MD 2018 - 25mg at bedtime as 12/11/2018 Tablets needed insomnia Td(Adult),Unspecifie Unknown d Injection Immunizations Description No Information Available Vital Signs Date Vital Result Comment 04/13/2019 8:23am Height 65.50 inches 5'5.50" Weight 217.00 lb Heart Rate 73 /min BP Systolic 123 mmHg BP Diastolic 81 mmHg Body Temperature 97.8 F O2 % BldC Oximetry 97 % BMI (Body Mass Index) 35.6 kg/m2 12/25/2018 8:22am Height 65.50 inches 5'5.50" Weight 215.25 lb w/shoes Heart Rate 81 /min BP Systolic Sitting 118 mmHg Lue reg cuff BP Diastolic Sitting 78 mmHg Lue reg cuff O2 % BldC Oximetry 96 % BMI (Body Mass Index) 35.3 kg/m2 Results Test Acquired Date Facility Test Result H/L Range Note Laboratory test 12/28/2018 [facility] TSH 2.28 Normal 0.34- 5.[address] (Thyroid mcIU/[place] [address] Stim Horm) [phone] CBC No Diff 12/28/2018 [facility] White 14.1 High 3.5-10.[address] Blood 10^3/[place] [address] Count [phone] Red Blood Count 5.20 10^6/uL High 3.70-4.87 Hemoglobin 15.0 g/dL Normal 12.0-16.0 Hematocrit 45 % Normal 35-47 Mean Corpuscular Volume 87 fL Normal 80-97 Mean Corpuscular Hemoglobin 29 pg Normal 27-31 Mean Corpuscular HGB Conc 33 g/dL Normal 31-36 Red Cell Distribution Width 13 % Normal 10-15 Platelet Count 321 10^3/uL Normal 150-450 Mean Platelet Volume 9.3 fL Normal 7.4-10.4 Urinalysis Profile 12/28/2018 [facility] Urine Color Straw [address] [place] [address] [phone] Urine Appearance Clear Urine Specific [place] 1.002 Low 1.010-1.030 Urine pH 6.0 Normal [...] Present Abnormal Absent Urine Culture And 12/28/2018 [facility] Urine SEE RESULT [address] [place] [place] [address] [phone] Laboratory test 12/22/2018 [facility] Vitamin D 75.9 ng/mL High 20-50 [address] Total 25(Oh) [place] [address] [phone] Comp Metabolic 12/22/2018 [facility] Sodium 138 mmol/L Normal 135-[address] [place] [address] [phone] Potassium 4.4 mmol/L Normal 3.5-5.0 Chloride 104 [...] Egfr 105.2 >60 3 Laboratory test 12/22/2018 [facility] Hepatitis Bs Negative Negative [address] [place] [address] [phone] Syphillis Igg W/Reflex RPR Negative Negative GC/Chlamydia 12/22/2018 [facility] Chlamydia Negative Negative Amplified Rna [address] [place] [address] [phone] Neisseria gonorrhoeae (GC) Rna Negative Negative Hepatitis C Antibody 12/22/2018 [facility] HCV Index 0.01 s/c [address] [place] [address] [phone] Hepatitis C Antibody Negative Negative Laboratory 12/22/2018 [facility] Hepatitis B Negative Negative test finding [address] [place] [address] [phone] HIV 1&2 p24 12/22/2018 [facility] HIV 4th Negative Negative Screen [address] [place] [address] [phone] CBC Auto Diff 11/20/2018 [facility] White Blood 11.2 10^3/uL High 3.5-10.[address] [place] [address] [phone] Red Blood Count 5.04 10^6/uL High 3.70-4.87 [...] Blood Cells % 0.0 Comp Metabolic 11/20/2018 [facility] Sodium 138 mmol/L Normal 135-145 Panel [address] [place] [address] [phone] Potassium 3.8 mmol/L Normal 3.5-5.0 Chloride 105 [...] Egfr 100.5 >60 5 Laboratory test 11/20/2018 [facility] HCG 1.55 mIU/mL 6 finding [address] [place] [address] [phone] Urinalysis Profile 11/20/2018 [facility] Urine Color Yellow [address] [place] [address] [phone] Urine Appearance Clear Urine Specific [place] 1.008 Low 1.010-1.030 Urine pH 6.0 Normal [...] Present Abnormal Absent Urine Culture And 11/20/2018 [facility] Urine Culture SEE RESULT [address] [place] [address] [phone] 1 SEE RESULT BELOW Name: SOILA STUBBS : [address]: Abigail Caldwell MD Acct: [id number] Unit: [id number] AGE: 38 Location: [facility] Re12/28/18 SEX: F Status: REG REF SPEC: [id number] YAHAIRA: 12/28/[address]: Abigail Caldwell MD REQ: [id number] RECD: 12/28/18 STATUS: COMP _ SOURCE: URINE SPDESC: ORDERED: Urine Culture Procedure Result Reported Site Urine Culture Final 12/30/18- 0953 ML Organism 1 ESCHERICHIA COLI [place] Count >100,000 (Many) CFU/ML 1. ESCHERICHIA COLI [...] . END OF REPORT DEPARTMENT OF PATHOLOGY, [address] [place] [address] Carson Grider M.D. Director [facility] # [id number] 2 Total 25-Hydroxyvitamin D2 and D3 (25-OH-VitD) [...] <15 (or dialysis) 4 Test Performed by: [facility] [address] [place] [address] 5 Because ethnic data is not always [...] 7 SEE RESULT BELOW Name: SOILA STUBBS : [address]: Kahlil Daniels Acct: [id number] Unit: [id number] AGE: 38 Location: ED Re11/20/18 SEX: F Status: REG ER SPEC: [id number] YAHAIRA: 11/20/[address]: Silvana Spicer MD REQ: [id number] RECD: 11/20/18 STATUS: STAS JORDAN DR: [facility] Abigail Caldwell MD _ SOURCE: URINE SPDESC: ORDERED: Urine Culture Procedure Result Reported Site Urine Culture Final 11/22/18- 08 ML Organism 1 ESCHERICHIA COLI [place] Count 25-50,000 (Moderate) CFU/ML 1. ESCHERICHIA COLI [...] Department for any additional antibiotic reporting. * - Main Lab . END OF REPORT DEPARTMENT OF PATHOLOGY, [address] [place] [address] Carson Grider M.D. Director [facility] # [id number] Procedures Date Code Description Status 04/27/2018 747566308 Bone Mineral Density Test Completed 03/31/2018 [id number] Diabetic Foot Exam Completed 11/07/2017 [id number] Mammogram Completed Medical Devices Description No Information Available Encounters Type Date Location Provider Dx Diagnosis Office Visit 01/12/2019 [facility] Dermatology Gini Marsh MD L40.8 Other psoriasis 9:30a L70.0 Acne vulgaris L24.9 Irritant contact dermatitis, unspecified cause Office Visit 12/25/2018 8:20a [facility] Internal Abigail Caldwell MD Z00.01 [facility] abnormal findings Z20.2 Contact w and exposure to infect w a sexl mode of transmiss R53.83 Other fatigue 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 Office Visit 11/20/2018 3:40p [facility] Max Caldwell, K62.5 Hemorrhage [facility]us [facility] and rectum Office Visit 11/06/2018 8:00a [facility] Internal Abigail Caldwell, F33.9 [facility] depressive [facility] disorder, recurrent, unspecified F39 Unspecified mood [affective] disorder G47.00 Insomnia, unspecified Assessments Date Code Description Provider 04/13/2019 Z02.89 Encounter for other administrative Seth Mora M.D. examinations 04/13/2019 Z11.3 Encounter for screening for infections with Seth Mora M.D. a predominantly sexual mode of transmission 01/12/2019 L40.8 Other psoriasis Gini Marsh MD 01/12/2019 L70.0 Acne vulgaris Gini Marsh MD 01/12/2019 L24.9 Irritant contact dermatitis, unspecified Gini Marsh MD cause 12/25/2018 Z00.01 Encounter for general adult medical [...] 11/06/2018 G47.00 Insomnia, unspecified Abigail Caldwell MD Plan of Treatment Future Appointment(s):05/11/2019 9:45 am - Gini Marsh MD at [facility] Lqgagkbwoxr55/10/2019 - Seth Mora M.D.Z02.89 Encounter for other administrative [id number] Encounter for screening for infections with a predominantly sexual mode of transmission Functional Status Description No Information Available Mental Status Description No Information Available Referrals Description No Information Available
--- NOTE | 2019-05-05 19:14 | UC ---
Respiratory Complaint HPI - HPI Summary HPI Summary: 39 yo female presents with cough. She tells me that 3 days ago she noticed some right gum/tooth/cheek swelling and thought she had a dental infection as she has bad teeth (these are scheduled to be removed on 05/11/18). The swelling improved within 24 hours, but then developed a runny nose, post nasal drip, and dry cough. Her runny nose improved within 24 hours, but dry cough has remained. She has been taking OTC cough medication with good relief, but states she needs to drink this every 4 hours or she'll keep coughing. 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 Denies fever, chills, SOB, chest pain, n/v. She does not smoke. - History of Current Complaint Stated Complaint: RESP COMPLAINT Time Seen by Provider: 05/05/19 19:13 Hx Obtained From: Patient Onset/Duration: Sudden Onset Severity Initially: Mild Severity Currently: Mild Pain Intensity: 2 Pain Scale Used: 0-10 Numeric - Allergies/Home Medications Allergies/Adverse Reactions: Allergies Allergy/AdvReac Type Severity Reaction Status Date / Time aspirin Allergy GI Upset Verified 05/05/19 19:28 dextromethorphan Allergy Hives Verified 05/05/19 19:28 [From Dimetapp Cold-Congestion] ketorolac [From Toradol] Allergy Vomiting Verified 05/05/19 19:28 latex Allergy Rash Verified 05/05/19 19:28 morphine Allergy hypotension Verified 05/05/19 19:28 and bradycardia paroxetine [From Paxil] Allergy Altered Verified 05/05/19 19:28 Mental Status phenylephrine Allergy Hives Verified 05/05/19 19:28 [From Dimetapp Cold-Congestion] sertraline [From Zoloft] Allergy Altered Verified 05/05/19 19:28 Mental Status tramadol Allergy Vomiting Verified 05/05/19 19:28 trazodone AdvReac Headache Verified 05/05/19 19:28 cinnamon Allergy Rash Uncoded 05/05/19 19:28 PMH/Surg Hx/FS Hx/Imm Hx - Additional Past Medical History Additional PMH: PCOS - Surgical History Surgical History: Yes Surgery Procedure, Year, and Place: L5-S1 surgery age 21. hysterectomy - Family History Known Family History: Negative: Hypertension - Social History Lives: With Family Alcohol Use: None Substance Use Type: None Smoking Status (MU): Current Every Day Smoker Amount Used/How Often: < 1ppd Review of Systems All Other Systems Reviewed And Are Negative: No Constitutional: Positive: Negative Skin: Positive: Negative Eyes: Positive: Negative ENT: Positive: Negative Respiratory: Positive: Cough Cardiovascular: Positive: Negative Gastrointestinal: Positive: Negative Neurological: Positive: Negative Psychological: Positive: Negative Physical Exam - Summary Physical Exam Summary: GENERAL: NAD. WDWN. No pain distress. SKIN: No rashes, sores, lesions, or open wounds. HEENT: Head: AT/NC Eyes: EOM intact. Conjunctiva clear without inflammation or discharge. Ears: Hearing grossly normal. TMs intact, no bulging, erythema, or edema. Nose: Nasal mucosa pink and moist. NTTP maxillary and frontal sinus. Throat: Posterior oropharynx without exudates, erythema, or tonsillar enlargement. Uvula midline. NECK: Supple. Nontender. No lymphadenopathy. CHEST: CTAB. No accessory muscle use. Breathing comfortably and in no distress. CV: RRR. Pulses intact. Cap refill <2seconds NEURO: Alert. PSYCH: Age appropriate behavior. Triage Information Reviewed: Yes Vital Signs: Vital Signs: Temp Pulse Resp BP Pulse Ox 99.4 F 80 17 125/87 97 05/05/19 19:20 05/05/19 19:20 05/05/19 19:20 05/05/19 19:20 05/05/19 19:20 Vital Signs Reviewed: Yes Dental: Positive: Gross Decay/Caries @ - throughout. Negative: Abscess @, Cellulitis @, Cervical Lymphadenopathy, Bleeding Respiratory Course/Dx - Course Course Of Treatment: Discussed that her symptoms are likely viral in origin. She prefers to be on anbx at this time as she works with immunocompromised individuals and is also scheduled to have oral surgery next week. She states she has taken steroids in the past for her cough and is requesting this today to help her current cough. - Differential Dx/Diagnosis Provider Diagnosis: Cough Discharge ED - Sign-Out/Discharge Documenting (check all that apply): Patient Departure All imaging exams completed and their final reports reviewed: No Studies - Discharge Plan Condition: Stable Disposition: HOME Prescriptions: Amoxicillin PO (*) [Amoxicillin 500 MG CAP*] 500 mg PO Q12H #14 cap methylPREDNISolone [Medrol Dosepak 4 MG*] 0 mg PO .SEE GREGG INSTRUCTION #1 packet Patient Education Materials: Acute Cough (ED) Referrals: Abigail Caldwell MD [Primary Care Provider] - - Billing Disposition and Condition Condition: STABLE Disposition: Home
[2019-05-05 19:26] VITALS: BP 125/87
[2019-05-05] MEDS ORDERED: Amoxicillin PO (*) 500 MG CAP PO ONE (19:49)
== END 2019-05-05 19:58 | disposition home or self-care (01) ==
LOC: UCEAST 19:08
DX: R05 Cough (principal); F17.210 Nicotine dependence, cigarettes, uncomplicated; Z88.6 Allergy status to analgesic agent; Z88.5 Allergy status to narcotic agent; Z88.8 Allergy status to other drugs, medicaments and biological substances; Z91.040 Latex allergy status; Z91.018 Allergy to other foods
CPT/HCPCS: 99212; A9270-GY; G0463

== ENCOUNTER 2020-11-15 11:35 | Inpatient (IN) ==
[~2020-11-15 11:35] MED LIST: Buffered Lidocaine 1% SYRIN 1 ml INTRADERM ONE; Lactated Ringers 1000 ml BAG 1,000 ML IV SCH
[2020-11-15] MEDS ORDERED: ceFAZolin 2 GM PREMIX 2 GM/50 ML BAG ONE (12:07)
[2020-11-15] MEDS ORDERED: Midazolam 2 mg/2 ml VIAL 1 mg/ml 2 ml VIAL (2 mg) ONE (13:15)
[2020-11-15] MEDS ORDERED: Propofol 10 MG/ML 20 ML BTL ONE ×3 (13:16→21:30)
[2020-11-15] MEDS ORDERED: Lidocaine 2% PF 5 ML VIAL ONE ×2 (13:16→19:31)
[2020-11-15] MEDS ORDERED: Phenylephrine IV 10 MG/ML 1 ml VIAL ONE (13:16)
[2020-11-15] MEDS ORDERED: fentaNYL 250 mcg/5 ml 50 MCG/ML 5 ml VIAL (250 MCG) ONE ×2 (13:16→19:29)
[2020-11-15] MEDS ORDERED: Remifentanil 2 MG VIAL ONE ×4 (13:16→21:32)
[2020-11-15] MEDS ORDERED: Lidocaine 1% w EPI 1:200,000 SDV 30 ML VIAL ONE (14:35)
[2020-11-15] MEDS ORDERED: Bacitracin INJECTION (manuf dc) 50,000 UNITS ONE (14:51)
[2020-11-15] MEDS ORDERED: Propofol 10 mg/ml 100 ML BTL 0 ML ONE (14:58)
[2020-11-15] MEDS ORDERED: Acetaminophen IV 1 GM/100ML 100 ML IV PRN (15:33)
[2020-11-15] MEDS ORDERED: Naloxone 0.4 mg VIAL 0.4 mg/ml 1 ml VIAL IV PRN (15:33)
[2020-11-15] MEDS ORDERED: DiMENhydriNATE IV 50 mg/ml 1 ml VIAL IV PUSH PRN (15:33)
[2020-11-15] MEDS ORDERED: HYDROmorphone 1 MG/1 ML SYRINGE IV PRN (15:33)
[2020-11-15] MEDS ORDERED: Ondansetron 4 mg VIAL 2 MG/ML 2 ml VIAL IV PRN ×2 (15:33→23:26)
[2020-11-15] MEDS ORDERED: Rocuronium 50 mg VIAL 10 mg/ml 5 ml VIAL (50 mg) ONE ×2 (19:31→21:15)
[2020-11-15] MEDS ORDERED: Propofol 10 mg/ml 100 ML BTL 100 ML ONE (20:28)
[2020-11-15] MEDS ORDERED: Dexamethasone IV 4 MG/ML VIAL 1 ml VIAL ONE ×2 (20:30→20:31)
[2020-11-15] MEDS ORDERED: Gelfoam 12-7 ADSORBABL SPONGE ONE ×2 (21:14→21:16)
[2020-11-15] MEDS ORDERED: Thrombin 5,000 UNITS 1 APPLIC KIT - topical use - TOPICAL ONE (21:32)
[2020-11-15] MEDS ORDERED: Acetaminophen IV 1 GM/100ML 100 ML IV ONE (22:59)
[2020-11-15] MEDS ORDERED: fentaNYL 100 mcg/2 ml 50 MCG/ML VIAL ONE (22:59)
[2020-11-15] MEDS: fentaNYL 100 mcg/2 ml 50 MCG/ML VIAL IV PRN ×4 (23:04→23:26)
[2020-11-15] MEDS ORDERED: HYDROcodone/ACETAMIN 5/325 mg TAB PO PRN (23:26)
[2020-11-16] MEDS: HYDROcodone/ACETAMIN 5/325 mg TAB PO PRN ×2 (00:39→10:04)
[2020-11-16 07:24] VITALS: BP 121/74
== END 2020-11-16 12:05 | disposition home or self-care (01) | DRG 321 ==
LOC: AA 11:35 → INTOOBSV 11:35 → SSU 23:54
PROVIDERS: ADMIT Neurological Surgery; ATTEND Neurological Surgery

== ENCOUNTER 2022-09-17 16:50 | Observation (INO) ==
[2022-09-17] MEDS ORDERED: Lactated Ringers 1000 ml BAG 1,000 ML IV ONE ×2 (17:23→19:01)
[2022-09-17] MEDS ORDERED: Ondansetron 4 mg VIAL 2 MG/ML 2 ml VIAL IV ONE ×2 (17:23→21:25)
[2022-09-17] MEDS ORDERED: Metoclopramide 5 MG/ML VIAL (10 mg) IV ONE (18:21)
[2022-09-17 18:41] LABS: ABS Basophils 0.1 10^3/uL (0.0-0.1); ABS Lymphocytes 2.2 10^3/uL (1.0-4.8); ABS Monocytes 0.9 10^3/uL (0.0-0.9); ABS Neutrophils 17.7 10^3/uL (1.5-7.6); ABS Nucleated RBC 0.02 10^3/ul; Eosinophil % 0.1 %; Hematocrit 42.6 % (35-45); Hemoglobin 14.8 g/dL (11.5-14.3); Lymphocyte % 10.5 %; Mean Corpuscular Hemoglobin 27.8 pg (27-33); Mean Corpuscular Hgb Conc 34.7 g/dL (31-36); Mean Corpuscular Volume 80.3 fL (80-97); Mean Platelet Volume 9.2 fL (7.5-11.2); Nucleated Red Blood Cells % 0.1 /100 WBC (0.0-0.4); Platelet Count 334 10^3/uL (150-450); Red Blood Count 5.31 10^6/uL (3.63-4.92); Red Cell Distribution Width 13.9 % (12-17); White Blood Count 20.8 10^3/uL (3.8-11.8)
[2022-09-17] MEDS ORDERED: fentaNYL 100 mcg/2 ml 50 MCG/ML VIAL IV SLOW PU ONE ×2 (18:42→22:12)
[2022-09-17 19:37] LABS: Albumin 3.9 g/dL (3.2-5.2); Albumin/Globulin Ratio 1.6 (1-3); C Reactive Protein 23.07 mg/L (<8.01); Calcium 9.5 mg/dL (8.6-10.3); Creatinine, Serum 0.77 mg/dL (0.51-0.95); Globulin 2.5 g/dL (2-4); Total Bilirubin 1.2 mg/dL (0.2-1.0); Total Protein 6.4 g/dL (6.4-8.9); eGFR CKD-EPI 97.5 (>60)
[2022-09-17 19:40] LABS: Potassium 2.5 mmol/L (3.5-5.0)
[2022-09-17] MEDS ORDERED: Iodixanol (CONTRAST) 320 MG/ML 100 ML SDV IV ONE (19:51)
[2022-09-17] MEDS ORDERED: Potassium Chlor 20 meq TAB.ER PO ONE (20:15)
[2022-09-17] MEDS: KCL 20 MEQ/100 ML IVPREMIX 20 MEQ/100 ML BAG IV SCH ×2 (20:51→23:00)
[2022-09-17] MEDS: Potassium Chloride LIQUID 20 MEQ/15 ML LIQUID PO ONE ×2 (21:29→22:59)
[2022-09-17] MEDS ORDERED: Droperidol 5 MG/2 ML 2 ML VIAL IV ONE ×2 (22:26→22:40)
[2022-09-17] MEDS ORDERED: Magnesium Sulfate IV 1GM/100ML 1 GM/100 ML BAG IV ONE (22:30)
[2022-09-17 22:57] LABS: Magnesium 1.6 mg/dL (1.9-2.7)
[2022-09-17] MEDS ORDERED: Piperacillin/Tazobac ADVAN 3.375 GM in NS 0.9% 100 ml BAG 100 ML IV ONE (23:05)
[2022-09-18] MEDS ORDERED: cefTRIAXone 1 gm/50 mL D5W 1 GM/50 ML BAG IV SCH (00:45)
[2022-09-18 01:49] LABS: Urine Appearance Clear; Urine Bilirubin Negative (Negative); Urine Blood Negative (Negative); Urine Color Yellow; Urine Glucose Negative (Negative); Urine Ketones 1+ (Negative); Urine Nitrite Negative (Negative); Urine Protein Negative (Negative); Urine Urobilinogen Negative (Negative)
[2022-09-18 01:59] LABS: Urine Specific Gravity > 1.060 (1.002-1.030)
[2022-09-18] MEDS: fentaNYL 100 mcg/2 ml 50 MCG/ML VIAL IV SLOW PU PRN ×4 (03:24→12:52)
[2022-09-18] MEDS: metroNIDAZOLE IV 500 MG/100ML 500 MG/100 ML BAG IVPB SCH ×3 (03:34→23:57)
[2022-09-18] MEDS ORDERED: fentaNYL 100 mcg/2 ml 50 MCG/ML VIAL IV SLOW PU ONE (04:45)
[2022-09-18 05:19] LABS: Hematocrit 39.1 % (35-45); Hemoglobin 13.7 g/dL (11.5-14.3); Mean Corpuscular Hemoglobin 28.3 pg (27-33); Mean Corpuscular Hgb Conc 35.1 g/dL (31-36); Mean Corpuscular Volume 80.8 fL (80-97); Mean Platelet Volume 9.1 fL (7.5-11.2); Platelet Count 280 10^3/uL (150-450); Red Blood Count 4.84 10^6/uL (3.63-4.92); Red Cell Distribution Width 14.1 % (12-17); White Blood Count 18.9 10^3/uL (3.8-11.8)
[2022-09-18 05:44] LABS: ABS Basophils 0.1 10^3/uL (0.0-0.1); ABS Eosinophils 0.1 10^3/uL (0.0-0.5); ABS Lymphocytes 2.9 10^3/uL (1.0-4.8); ABS Monocytes 1.6 10^3/uL (0.0-0.9); ABS Neutrophils 14.2 10^3/uL (1.5-7.6); ABS Nucleated RBC 0.03 10^3/ul; Eosinophil % 0.3 %; Lymphocyte % 15.4 %; Nucleated Red Blood Cells % 0.2 /100 WBC (0.0-0.4)
[2022-09-18 05:59] LABS: Calcium 8.4 mg/dL (8.6-10.3); Creatinine, Serum 0.71 mg/dL (0.51-0.95); eGFR CKD-EPI 107.5 (>60)
[2022-09-18 06:00] LABS: Potassium 2.7 mmol/L (3.5-5.0)
[2022-09-18] MEDS ORDERED: Potassium Chloride LIQUID 20 MEQ/15 ML LIQUID PO ONE (06:44)
[2022-09-18] MEDS ORDERED: Magnesium Sulfate IV 1GM/100ML 1 GM/100 ML BAG IV ONE (06:45)
[2022-09-18] MEDS: Pantoprazole VIAL 40 MG VIAL IV SCH (08:00)
[2022-09-18] MEDS: Lactated Ringers 1000 ml BAG 1,000 ML IV SCH ×2 (08:04→21:53)
[2022-09-18] MEDS: KCL 20 MEQ/100 ML IVPREMIX 20 MEQ/100 ML BAG IV SCH ×6 (08:04→23:40)
[2022-09-18] MEDS ORDERED: Naloxone 0.4 mg VIAL 0.4 mg/ml 1 ml VIAL IV PRN ×2 (11:20→17:39)
[2022-09-18] MEDS ORDERED: HYDROmorphone 1 MG/1 ML SYRINGE IV PRN ×2 (11:20→17:39)
[2022-09-18 13:01] LABS: Magnesium 2.2 mg/dL (1.9-2.7)
[2022-09-18] MEDS ORDERED: Propofol 10 MG/ML 20 ML BTL ONE ×2 (15:03→17:14)
[2022-09-18] MEDS ORDERED: Rocuronium 50 mg VIAL 10 mg/ml 5 ml VIAL (50 mg) ONE (15:03)
[2022-09-18] MEDS ORDERED: Lidocaine 2% PF 5 ML VIAL ONE (15:03)
[2022-09-18] MEDS ORDERED: Succinylcholine 200 mg VIAL 20 mg/ml 10 ml VIAL (200 mg) ONE (15:03)
[2022-09-18] MEDS ORDERED: fentaNYL 100 mcg/2 ml 50 MCG/ML VIAL ONE ×3 (15:04→17:14)
[2022-09-18] MEDS ORDERED: Midazolam 2 mg/2 ml VIAL 1 mg/ml 2 ml VIAL (2 mg) ONE (15:04)
[2022-09-18] MEDS ORDERED: Bupivacaine 0.25% EPI 200,000 30 ML SDV ONE (15:14)
[2022-09-18] MEDS ORDERED: metroNIDAZOLE IV 500 MG/100ML 500 MG/100 ML BAG ONE (15:40)
[2022-09-18] MEDS ORDERED: Ondansetron 4 mg VIAL 2 MG/ML 2 ml VIAL ONE (16:30)
[2022-09-18] MEDS ORDERED: Dexamethasone IV 4 MG/ML VIAL 1 ml VIAL ONE ×2 (16:30)
[2022-09-18] MEDS ORDERED: HYDROmorphone 0.5 MG/0.5 ML SYRINGE ONE (16:55)
[2022-09-18] MEDS ORDERED: Sugammadex 500 MG/5 ML 5 ml VIAL IV PUSH ONE (17:17)
[2022-09-18] MEDS ORDERED: fentaNYL 100 mcg/2 ml 50 MCG/ML VIAL IV PRN (17:39)
[2022-09-18] MEDS ORDERED: Acetaminophen IV 1 GM/100ML 1,000 MG/100 ML BAG IV PRN (17:39)
[2022-09-18] MEDS ORDERED: Ondansetron 4 mg VIAL 2 MG/ML 2 ml VIAL IV PRN (17:39)
[2022-09-18] MEDS ORDERED: Zosyn per Pharmacy NOTE FOLLOW UP SCH (19:00)
[2022-09-18] MEDS ORDERED: ZOSYN 3.375 GM x ONE DOSE over 30 miuntes IV (21:00)
[2022-09-18 21:49] LABS: Calcium 8.3 mg/dL (8.6-10.3); Creatinine, Serum 0.78 mg/dL (0.51-0.95)
[2022-09-18] MEDS: Nystatin TOP POWDER 15 GM BTL TOPICAL SCH (21:50)
[2022-09-18] MEDS: Acetaminophen IV 1 GM/100ML 1,000 MG/100 ML BAG IV PRN (23:45)
[2022-09-19] MEDS: KCL 20 MEQ/100 ML IVPREMIX 20 MEQ/100 ML BAG IV SCH ×3 (01:51→10:30)
[2022-09-19] MEDS ORDERED: ZOSYN 3.375 GM Q8H per EXTENDED INFUSION IV SCH (02:00)
[2022-09-19] MEDS: ZOSYN 3.375 GM Q8H per EXTENDED INFUSION IV SCH ×2 (04:33→12:45)
[2022-09-19] MEDS: Acetaminophen IV 1 GM/100ML 1,000 MG/100 ML BAG IV PRN (06:20)
[2022-09-19 06:30] LABS: Hematocrit 35.7 % (35-45); Mean Corpuscular Hemoglobin 27.3 pg (27-33); Mean Corpuscular Hgb Conc 33.8 g/dL (31-36); Mean Corpuscular Volume 80.7 fL (80-97); Mean Platelet Volume 9.1 fL (7.5-11.2); Platelet Count 253 10^3/uL (150-450); Red Blood Count 4.42 10^6/uL (3.63-4.92); Red Cell Distribution Width 14.4 % (12-17); White Blood Count 25.4 10^3/uL (3.8-11.8)
[2022-09-19 06:33] LABS: ABS Lymphocytes 2.3 10^3/uL (1.0-4.8); ABS Monocytes 1.5 10^3/uL (0.0-0.9); ABS Neutrophils 21.6 10^3/uL (1.5-7.6); ABS Nucleated RBC 0.04 10^3/ul; Lymphocyte % 9.1 %; Nucleated Red Blood Cells % 0.2 /100 WBC (0.0-0.4)
[2022-09-19 06:53] LABS: Albumin/Globulin Ratio 1.4 (1-3); Calcium 7.8 mg/dL (8.6-10.3); Creatinine, Serum 0.62 mg/dL (0.51-0.95); Globulin 2.1 g/dL (2-4); Total Bilirubin 0.6 mg/dL (0.2-1.0); Total Protein 5.1 g/dL (6.4-8.9); eGFR CKD-EPI 112.5 (>60)
[2022-09-19] MEDS: Nystatin TOP POWDER 15 GM BTL TOPICAL SCH (07:45)
[2022-09-19] MEDS: Pantoprazole VIAL 40 MG VIAL IV SCH (07:48)
[2022-09-19] MEDS: Lactated Ringers 1000 ml BAG 1,000 ML IV SCH (07:54)
[2022-09-19] MEDS ORDERED: CMCS: Vortioxetine 10 mg TAB (NF) PO SCH (09:00)
[2022-09-19] MEDS ORDERED: Lactated Ringers 1000 ml BAG 1,000 ML IV SCH (09:27)
[2022-09-19] MEDS ORDERED: NS 0.9% 500 ml BAG 500 ML IV ONE (10:15)
[2022-09-19] MEDS: Potassium Chlor 10 meq TAB PO SCH ×3 (11:04→15:20)
[2022-09-19 14:26] VITALS: BP 121/59
[2022-09-19 15:38] LABS: Calcium 8.2 mg/dL (8.6-10.3); Creatinine, Serum 0.78 mg/dL (0.51-0.95); Potassium 2.8 mmol/L (3.5-5.0)
[2022-09-19] MEDS ORDERED: Potassium Chlor 10 meq TAB PO ONE (15:53)
== END 2022-09-19 17:50 | disposition home or self-care (01) ==
LOC: EDHOLD 16:50 → ED 16:50 → EDHOLD 09-18 13:51 → SSU 09-18 19:17
PROVIDERS: ADMIT Internal Medicine; ATTEND Surgery